=== PATIENT | female | born 1995 | race Caucasian/White ===

== ENCOUNTER → 2016-05-31 | Day surgery (SDC) | payer OTHER ==
[~2016-05-31] MED LIST: ADVIL200 MG PO; AUGMENTIN 875875 MG PO; CIPROFLOXACIN500 M2 PO; DILAUDID2 M1 PO; FERROUS SULFAT325 M1 PO; FIORICET 50-301 EACH PO; IBUPROFEN800 M1 PO; MEDROXYPROG150 MG/ML IM; OXYCODONE-ACET1 EAC1 PO; PERCOCET 325 MG1 TA2 PO; PERCOCET 325 MG1 TA3 PO; PERCOCET 5-3251 EACH PO; ZOFRAN ODT4 M1 SL; ZOFRAN4 M1 SL
--- NOTE | 2016-05-31 15:35 | Operative Report ---
Operative/Inv Procedure Report Surgery Date: 05/31/16 Name of Procedure: left renal ESWL/fluoroscopy Pre-Operative Diagnosis: left renal stone Post-Operative Diagnosis: same Estimated Blood Loss: none Surgeon/Occupational Therapy Assistant: COURTNEY WILLSON MD Anesthesia: moderate sedation Complications: none Operative/Procedure Note Note: The patient was taken to the operating room and placed on the ESWL table in supine position. With the patient awake and participating, timeout was performed to confirm correct identity, procedure, laterality, anesthesia, and other pertinent dionte-operative information. After adequate anesthesia, the patient was positioned so that the patient's left flank was positioned over the table cut-out, overlying the dome of the treatment head. Once the patient was adequately sedated, fluoroscopy, as well as Renal ultrasound was used to locate the LEFT renal stone. Renal US confirmed the presence of the stone which measured it to be approximately 6mm stone. The stone was faintly visible with fluoroscopy. Renal US revealed, no hydronephrosis, and no solid tumor, and presence of the stone. The position of the stone was optimized by using fluoroscopy in AP and oblique views;placing the stone within the ESWL c-arm crosshairs. Once the stone's position was optimized, the LEFT renal E.S.W.L. was initiated at low energy level. After noting the patient's tolerance to the shockwaves, the intensitiy was ramped up to maximum level. At the end of the procedure, the left renal stone had dissintegrated. Of note, a total of 2500 shockwaves were delivered to the stone. The patient tolerated the ESWL procedures well, was awakened, then taken to recovery in satisfactory condition via stretcher. The patient was dischared home with pain medications, diet orders, and intructions to catch fragments by straining the urine. The patient to to have follow-up renal ultrasound and KUB in 1 to 2 weeks, prior to follow-up visit in my office. He will then proceed with metabolic stone work-up. Discharge Disposition: Same Day Admissions CC: COURTNEY WILLSON MD
== END ==
LOC: STS 04:09
DX: N20.0 Calculus of kidney (principal)
CPT/HCPCS: 81025; J2250

== ENCOUNTER 2016-07-02 16:26 | Emergency (ER) | payer OTHER ==
[~2016-07-02] VITALS: Ht 165.1 cm; Wt 61.2 kg
[~2016-07-02 16:26] MED LIST changes: -CIPROFLOXACIN500 M2 PO; -DILAUDID2 M1 PO; -FIORICET 50-301 EACH PO; -OXYCODONE-ACET1 EAC1 PO
--- NOTE | 2016-07-02 16:45 | ED AMS/SEIZURE/WEAK/DIZZY ---
History of Present Illness General Chief Complaint: Dizziness Stated Complaint: DIZZINESS Source: patient Exam Limitations: no limitations Vital Signs & Intake/Output Vital Signs & Intake/Output Vital Signs Date Time Temp Pulse Resp B/P Pulse O2 O2 Flow FiO2 Ox Delivery Rate 07/02 1738 97.6 88 18 120/77 99 Room Air 07/02 1716 99 Room Air 07/02 1627 97.6 80 18 131/87 97 Room Air Allergies Coded Allergies: NO KNOWN ALLERGIES (07/02/16) Reconcile Medications Butalb/Acetaminophen/Caffeine (Fioricet 50-300-40 MG Capsule) 50 MG-300 MG-40 MG CAPSULE 1 TAB PO TID PRN HEADACHE Triage Note: 21 YO FEMALE TO TRIAGE. STATES SHE HAD A SUDDEN ONSET OF DIZZINESS AND BP WAS 83/56. PT BP NOW 111/69. PT C/O HEADACHE/NAUSEA AT THIS TIME. PT CURRENTLY HAS MENSES. Triage Nurses Notes Reviewed? yes Onset: Gradual Duration: minute(s): (20) Timing: no prior history Injury Environment: work Severity: moderate Severity Numbers: 7 Modifying Factors: Worsens With: other (standing). : No Patient currently breastfeeds: No HPI: Patient is a 21-year-old female with history of kidney stones presenting to the emergency department with chief complaint of lightheadedness, dizziness and episode of hypotension And while she was at work today. She reports that she felt lightheaded so she decided to take her blood pressure. The first pressure was normal and then she became more lightheaded and decided do a repeat blood pressure which was 80/50. She then contacted her boss who told her to sign in for evaluation. Denies any actual syncope. She reports that she had just eaten lunch. Denies any vomiting but reports nausea. Symptoms are worse with positional changes. Denies any double vision. She does report intermittent blurred vision with the initial episode. No recent upper respiratory symptoms or colds. Denies fevers or chills. No neck pain or back pain. She does report frontal headache throbbing in nature. Denies taking anything prior to arrival help with symptoms. Symptoms currently moderate. (RICKY MCDERMOTT,ERIN) Past History Travel History Traveled to [place] past 21 day No Medical History Any Pertinent Medical History? see below for history Neurological: NONE EENT: NONE Cardiovascular: NONE Respiratory: NONE Gastrointestinal: NONE Hepatic: cholelithiasis Renal: nephrolithiasis, KIDNEY STENTS Musculoskeletal: NONE Psychiatric: NONE Endocrine: NONE History of MRSA: No History of VRE: No History of CDIFF: No Surgical History Surgical History: cholecystectomy, , KIDNEY STENTS Psychosocial History Who do you live with Family Services at Home None What is your primary language Yi Tobacco Use: Current Daily Use Daily Tobacco Use Amount/Type: => 5 Cigarettes daily Family History Hx Contributory? No (ERIN CUENCA) Review of Systems Review of Systems Constitutional: Reports: malaise. Comments Review of systems: See HPI, All other systems negative. Constitutional, no chills fever or weight loss HEENT: No visual changes no sore throat no congestion Cardiovascular: No chest pain ,palpitation , orthopnea or ankle swelling Skin, no jaundice no rashes Respiratory: No dyspnea cough sputum or hemoptysis GI: no vomiting : No dysuria No hematuria Muscle skeletal: no back pain, no neck pain, Neurologic: No numbness no confusion Psych: No stress anxiety or depression,. Heme/endocrine: No bruising no bleeding no polyuria or polydipsia Immunology: No splenectomy or history of AIDS (ERIN CUENCA) Physical Exam Physical Exam General Appearance: well developed/nourished, no apparent distress, alert, awake , comfortable Comments: Well-developed well-nourished person in no acute distress HEENT: Normal EENT exam, extraocular motion intact, no nystagmus. Pupils equally round and reactive to light and accommodation. Nose is atraumatic. External auditory canal and Tympanic membranes clear. Pharynx normal. No swelling or edema. Funduscopic: Somewhat limited secondary to no dilation but no acute intra-ocular process noted. No venous nicking or retinal detachment noted. Neck: Supple, no lymphadenopathy, normal range of motion without pain or tenderness. No meningeal signs. Back: Nontender Cardiovascular: Regular rate and rhythms no murmurs rubs or gallops, normal JVP Respiratory: Chest nontender. No respiratory distress.breath sounds clear to auscultation bilaterally Abdomen: Soft, nontender nondistended, no appreciable organomegaly. Normal bowel sounds. No ascites Extremity: No edema, no calf tenderness to palpation, normal and equal pulses. Full range of motion of all extremity is without difficulty or pain. Muscular strength is 5 out of 5 in all extremities. Neuro: Alert oriented x3, motor sensory normal, cranial nerves II through XII grossly intact. Cerebellar testing is unremarkable. Skin: No appreciable rash on exposed skin, skin is warm and dry. Psych: Mood and affect is normal, memory and judgment is normal. Core Measures ACS in differential dx? No CVA/TIA Diagnosis: No Severe Sepsis Present: No Septic Shock Present: No (RICKY MCDERMOTT,ERIN) Progress Differential Diagnosis: VASOVAGAL EPISODE, HYPOGLYCEMIA , MIGRAINE HEADACHE, ORTHOSTATIC HYPOTENSION, VIRAL SYNDROME, INFLUENZA, DEHYDRATION, ANEMIA Plan of Care: Orders Procedure Date/time Status RAPID VIRAL INFLUENZA A 07/02 1717 Complete Add-on Test (ER Only) 07/02 1644 Active MISTAKE 07/02 1643 Active Telemetry/Coach Driver 07/02 164 Active URINE 07/02 164 Complete URINALYSIS 07/02 164 Complete TSH REFLEX 07/02 164 Complete TROPONIN LEVEL 07/02 164 Complete COMPREHENSIVE METABOLIC PANEL 07/02 164 Complete CBC WITHOUT DIFFERENTIAL 07/02 1643 Complete EKG 07/02 164 Active Laboratory Tests 07/02/16 171: Urinalysis MANY H, Urine Color YEL, Urine Clarity CLDY H, Urine pH 8.0, Ur Specific [place] 1.015, Urine Protein TRACE H, Urine Ketones NEG, Urine Nitrite NEG, Urine Bilirubin NEG, Urine Urobilinogen 0.2, Ur Leukocyte Esterase NEG, Ur Microscopic SEDIMENT EXAMINED, Urine RBC 1-3, Urine WBC 1-3 H, Ur Epithelial Cells MANY H, Urine Hemoglobin LARGE H, Urine Glucose NEG, Urine Test NEGATIVE 07/02/161709: Anion Gap 11, Estimated GFR > 60, BUN/Creatinine Ratio 22.9, Glucose 87, Calcium 9.5, Total Bilirubin 0.5, AST 28, ALT 31, Alkaline Phosphatase 52, Troponin I < 0.01, Total Protein 7.5, Albumin 4.7, Globulin 2.8, Albumin/Globulin Ratio 1.7, TSH &T3 &Free T4 Intrp 1.150, CBC w Diff NO MAN DIFF REQ, RBC 4.00 L, MCV 90.3, MCH 30.2, RDW 12.6, MPV 8.3, Gran % 66.6, Lymphocytes % 26.8, Monocytes % 5.2, Eosinophils % 1.1, Basophils % 0.3, Absolute Granulocytes 4.6, Absolute Lymphocytes 1.8, Absolute Monocytes 0.4, Absolute Eosinophils 0.1, Absolute Basophils 0, PUBS MCHC 33.5 Initial ED EKG: NSR (78 BPM) Comments: On arrival patient medicated with IV fluids 1 L normal saline, IV Toradol for headache. Blood pressure stable at this time. We will assess CBC is patient reports recent history of menstrual period with heavier bleeding than normal. Patient informed of all lab work results. While still stable. Patient's overreporting frontal headache. Patient will receive Fioricet. Patient feeling much improved of her Fioricet. She'll be discharged home. Educated on increasing fluids. Patient nontoxic and compliant. (ERIN CUENCA) Departure Departure Time of Disposition: 1841 Disposition: HOME OR SELF CARE Condition: Stable Clinical Impression Primary Impression: Dizziness Secondary Impressions: Headache Qualifiers: Headache type: unspecified Headache chronicity pattern: unspecified pattern Intractability: not intractable Qualified Code: R51 - Headache Referrals: PATIENT HAS NO PRIMARY CARE DR (PCP/Family) Departure Forms: Customer Survey General Discharge Information Prescriptions: Current Visit Scripts Butalb/Acetaminophen/Caffeine (Fioricet 50-300-40 MG Capsule) 1 TAB PO TID PRN HEADACHE #10 TAB (ERIN CUENCA) PA/COST ESTIMATOR Co-Sign Statement Statement: ED Attending supervision documentation- [] I saw and evaluated the patient. I have also reviewed all the pertinent lab results and diagnostic results. I agree with the findings and the plan of care as documented in the PA's/COST ESTIMATOR's documentation. X I have reviewed the ED Record and agree with the PA's/COST ESTIMATOR's documentation. [] Additions or exceptions (if any) to the PAs/COST ESTIMATOR's note and plan are summarized below: [] (BRITANY MORALES,GOLD)
[2016-07-02 17:21] LABS: ABSOLUTE BASOPHIL COUNT 0 /CUMM (0.0-0.2); ABSOLUTE EOSINOPHIL COUNT 0.1 /CUMM (0.0-0.7); ABSOLUTE GRANULOCYTE CT 4.6 /CUMM (1.4-6.5); ABSOLUTE LYMPH COUNT 1.8 /CUMM (1.2-3.4); ABSOLUTE MONOCYTE COUNT 0.4 /CUMM (0.10-0.60); BASOPHIL % 0.3 % (0.0-2.0); EOSINOPHIL % 1.1 % (0-5); GRANULOCYTE % 66.6 % (42.2-75.2); HEMATOCRIT 36.1 % (37-47); MEAN CORPUSCULAR HGB 30.2 PG (27.0-31.0); MEAN CORPUSCULAR HGB CONC 33.5 G/DL (33.0-37.0); MEAN CORPUSCULAR VOLUME 90.3 FL (81.0-99.0); MEAN PLATELET VOLUME 8.3 FL (7.4-10.4); PLATELET COUNT 224 /CUMM (130-400); RBC DISTRIBUTION WIDTH 12.6 % (11.5-14.5); WHITE BLOOD CELL COUNT 6.9 /CUMM (4.8-10.8)
[2016-07-02] MEDS ORDERED: FIORICET 50-301 EACH PO (19:06)
[2016-07-02 19:41] VITALS: BP 115/74
== END 2016-07-02 19:42 ==
LOC: ERH 16:26
PROVIDERS: Physician Assistant
DX: R42 Dizziness and giddiness (principal); R51 Headache
CPT/HCPCS: 81001; 81025; 87804; 87804-59; 93005; 93010; 96374; J1885

== ENCOUNTER → 2016-08-04 | Day surgery (SDC) | payer OTHER ==
[~2016-08-04] VITALS: Ht 165.1 cm; Wt 59.0 kg
[~2016-08-04] MED LIST changes: +CIPROFLOXACIN500 M2 PO; +DILAUDID2 M1 PO; +FIORICET 50-301 EACH PO; +OXYCODONE-ACET1 EAC1 PO
--- NOTE | 2016-08-04 11:23 | RADIOLOGY REPORT ---
EXAMINATION: Intraoperative fluoroscopy CLINICAL INFORMATION: Right-sided ureteroscopy. Bilateral retrograde ureterograms. COMPARISON: KUB 07/26/2016, renal ultrasound 07/26/[address] abdomen pelvis 04/30/2016 TECHNIQUE: Intraoperative fluoroscopy was provided for use by Dr. Wiley. A total of 13 images were saved to PACS. TOTAL FLUOROSCOPIC TIME: 1 minute and 16 seconds FINDINGS\E\IMPRESSION: Intraoperative fluoroscopy provided for use by Dr. Wiley. Saved images demonstrate opacification of the bilateral ureters and renal pelvises. Instrumentation is appreciated within the right ureter and right renal pelvis. Please see operative note for detailed findings.
--- NOTE | 2016-08-04 14:46 | Operative Report ---
Operative/Inv Procedure Report Surgery Date: 08/04/16 Name of Procedure: cystoscopy: bilateral retrograde pyelogram, right flexible ureteroscopy with laser lithotrypsy of renal stone. Pre-Operative Diagnosis: R>L renal colic. with hydro. Post-Operative Diagnosis: same Estimated Blood Loss: scant Surgeon/Brake Lining Finisher: COURTNEY WILLSON MD Anesthesia: laryngeal mask airway Complications: none Operative/Procedure Note Note: Patient was taken to the operating room placed on the OR table in supine position. Timeout was performed, with the patient awake, in order to confirm the patient's identity, procedure, bilaterality, antibiotics, anesthesia, and other pertinent dionte-operative information. After adequate anesthesia and antibiotics, the patient was then placed in lithotomy stirrups, draped and prepped in the usual surgical fashion. A 22 [place] cystoscope sheath with 30 angle lens was inserted without difficulty. Upon entering the bladder, the bladder was noted to be free of tumor, and free of stone. Using a ureteral open -ended stent, starting with the left ureter, a retrograde pyelograms was perfomed, with fluoroscopy, revealing no filling defects, with quick and adequate drainage of the contrast material bilaterally, after the removal of the ureter open-ended stent. The same retrograde procedure was performed on the right side, again revealing no obvious filling deffect, and brisk efflux of contrast material. As the pt has been c/o severe right renal colic, I proceeded with flexible ureteroscopy. Holmium/YAG laser was on standby and turned on. The right orifice was intubated with a 0.035 gluide wire, and advanced to the right renal pelvis without difficulty. Using the gluide wire, and fluoroscope, the flexible uretersocope was placed over the gluide wire and advanced to the right renal pelvis with fluoroscopic guidance. Thorough calycoscopy and pyeloscopy confirms NO stone, and NO tumor in the renal calyxes, nor renal pelvis. At this point, the ureteroscope was then gently retracted from the left renal pelvis without difficulty, and no other stone, nor any tumor, was visualized along the left ureter with direct visualization. The bladder was then drained. All sponge needle and instrument count were correct at the end of the case. The patient tolerated the procedure well was then taken to the recovery room in satisfactory condition. She is discharged home with antibiotics and pain meds. Findings: 5mm LP stone pulverized with 200mcm fiber. Discharge Disposition: PACU CC: COURTNEY WILLSON MD
== END ==
LOC: STS 08-02 07:00
DX: N23 Unspecified renal colic (principal); N13.39 Other hydronephrosis; Z87.442 Personal history of urinary calculi
CPT/HCPCS: 74020; 81025; J2250

== ENCOUNTER 2016-08-26 00:12 | Emergency (ER) | payer OTHER ==
[~2016-08-26 00:12] MED LIST changes: -CIPROFLOXACIN500 M2 PO; -DILAUDID2 M1 PO; -OXYCODONE-ACET1 EAC1 PO
[2016-08-26 00:24] VITALS: BP 125/87
[2016-08-26 01:31] LABS: ABSOLUTE BASOPHIL COUNT 0 /CUMM (0.0-0.2); ABSOLUTE EOSINOPHIL COUNT 0 /CUMM (0.0-0.7); ABSOLUTE GRANULOCYTE CT 5.8 /CUMM (1.4-6.5); ABSOLUTE LYMPH COUNT 1.5 /CUMM (1.2-3.4); ABSOLUTE MONOCYTE COUNT 0.4 /CUMM (0.10-0.60); BASOPHIL % 0.1 % (0.0-2.0); EOSINOPHIL % 0.4 % (0-5); GRANULOCYTE % 74.8 % (42.2-75.2); MEAN CORPUSCULAR HGB 30.2 PG (27.0-31.0); MEAN CORPUSCULAR HGB CONC 33.8 G/DL (33.0-37.0); MEAN CORPUSCULAR VOLUME 89.3 FL (81.0-99.0); MEAN PLATELET VOLUME 8.9 FL (7.4-10.4); PLATELET COUNT 219 /CUMM (130-400); RBC DISTRIBUTION WIDTH 12.5 % (11.5-14.5); RED BLOOD CELL CT 4.25 /CUMM (4.20-5.40); WHITE BLOOD CELL COUNT 7.8 /CUMM (4.8-10.8)
--- NOTE | 2016-08-26 01:42 | ED GI/GU/ABDOMINAL COMPLAINT ---
History of Present Illness General Chief Complaint: Female Urogenital Problems Stated Complaint: PT C/O R SIDED FLANK PAIN S/P PROCEDURE IN JULY Source: patient, old records Exam Limitations: no limitations Vital Signs & Intake/Output Vital Signs & Intake/Output Vital Signs Date Time Temp Pulse Resp B/P Pulse O2 O2 Flow FiO2 Ox Delivery Rate 08/26 0035 Room Air 08/26 0024 97.0 100 18 125/87 99 Room Air Allergies Coded Allergies: No Known Allergies (08/26/16) Reconcile Medications Butalb/Acetaminophen/Caffeine (Fioricet 50-300-40 MG Capsule) 50 MG-300 MG-40 MG CAPSULE 1 TAB PO TID PRN HEADACHE Hydromorphone HCl (Dilaudid) 2 MG TABLET 1 TAB PO Q6P PRN severe pain Triage Note: PT TO ED FOR COMPLAINTS OF WORSENING R SIDED FLANK PAIN. HX OF KIDNEY STONES AND HYDRONEPHROSIS. PT HAD URETEROSCOPY ON 07/31/16 AND PAIN HAS BEEN SLOWLY INCREASING SINCE PROCEDURE. PT DENIES URINARY SYMPTOMS. PAIN IS 6/10 AT THIS TIME. DENIES CHANCE OF . STATES "I CAN FEEL THE KIDNEY IS SWOLLEN" Triage Nurses Notes Reviewed? yes LMP (ages 10-50): unknown ? n Is pt currently ? No Onset: several weeks Duration: week(s):, constant, continues in ED, getting worse Timing: recent history Quality/Severity: aching, sharpness, severe Location: right flank Radiation: no radiation Activities at Onset: none Prior Abdominal Problems: similar symptoms Past Sexual History: Unobtainable at this time No Modifying Factors: none Associated Symptoms: abdominal pain, nausea/vomiting HPI: 1 week prior to admission patient complains of recurrent right flank pain described as waxing and waning nonradiating associated with nausea. She has follow-up ultrasound x-rays in 3 days for hydronephrosis. She denies fever chills vomiting diarrhea chest pain cough shortness of breath headache dysuria rash bleeding. Past History Travel History Traveled to [place] past 21 day No Medical History Any Pertinent Medical History? see below for history Neurological: NONE EENT: NONE Cardiovascular: NONE Respiratory: NONE Gastrointestinal: NONE Hepatic: cholelithiasis Renal: nephrolithiasis, HYDRONEPHROSIS Musculoskeletal: NONE Psychiatric: NONE Endocrine: NONE History of MRSA: No History of VRE: No History of CDIFF: No Surgical History Surgical History: cholecystectomy, , KIDNEY STENTS Psychosocial History Who do you live with Family Services at Home None What is your primary language Bhutanese Tobacco Use: Current Daily Use Daily Tobacco Use Amount/Type: =< 4 Cigarettes daily ETOH Use: occasional use Family History Hx Contributory? No Review of Systems Review of Systems Constitutional: Reports: see HPI, malaise. EENTM: Reports: no symptoms. Respiratory: Reports: no symptoms. Cardiovascular: Reports: no symptoms. GI: Reports: no symptoms. Genitourinary: Reports: see HPI, pain. Musculoskeletal: Reports: no symptoms. Skin: Reports: no symptoms. Neurological/Psychological: Reports: no symptoms. Hematologic/Endocrine: Reports: no symptoms. Immunologic/Allergic: Reports: no symptoms. All Other Systems: Reviewed and Negative Physical Exam Physical Exam General Appearance: well developed/nourished, alert, awake, anxious, moderate distress, thin Head: atraumatic, normal appearance Eyes: Bilateral: normal appearance, PERRL, EOMI, normal inspection. Ears, Nose, Throat, Mouth: hearing grossly normal, moist mucous membrane Neck: normal inspection, supple, full range of motion, normal alignment Respiratory: normal breath sounds, chest non-tender, no respiratory distress, quiet respiration, lungs clear Cardiovascular: regular rate/rhythm, normal peripheral pulses, norml femoral pulses equa Peripheral Pulses: 4+ carotid (R), 4+ carotid (L) Gastrointestinal: normal bowel sounds, soft, non-tender, no organomegaly Back: normal inspection, normal range of motion Extremities: normal range of motion, no ligament instability Neurologic/Psych: no motor/sensory deficits, awake, alert, oriented x 3, normal gait, normal mood/affect Skin: intact, normal color, warm/dry Core Measures ACS in differential dx? No Severe Sepsis Present: No Septic Shock Present: No Progress Differential Diagnosis: kidney stone, UTI/pyelo Plan of Care: Orders Procedure Date/time Status URINALYSIS 08/26 99 Complete HUMAN BETA HCG SCREEN 08/26 99 Complete COMPREHENSIVE METABOLIC PANEL 08/26 99 Complete CBC WITHOUT DIFFERENTIAL 08/26 99 Complete Laboratory Tests 08/26/16 0123: Anion Gap 10, Estimated GFR > 60, BUN/Creatinine Ratio 18.6, Glucose 98, Calcium 9.6, Total Bilirubin 0.5, AST 27, ALT 24, Alkaline Phosphatase 35, Total Protein 7.4, Albumin 4.5, Globulin 2.9, Albumin/Globulin Ratio 1.6, Total Beta HCG NEGATIVE, CBC w Diff NO MAN DIFF REQ, RBC 4.25, MCV 89.3, MCH 30.2, RDW 12.5, MPV 8.9, Gran % 74.8, Lymphocytes % 19.3 L, Monocytes % 5.4, Eosinophils % 0.4, Basophils % 0.1, Absolute Granulocytes 5.8, Absolute Lymphocytes 1.5, Absolute Monocytes 0.4, Absolute Eosinophils 0, Absolute Basophils 0, PUBS MCHC 33.8, Urine Color STRAW, Urine Clarity HAZY H, Urine pH 6.5, Ur Specific [place] <= 1.005, Urine Protein NEG, Urine Ketones NEG, Urine Nitrite NEG, Urine Bilirubin NEG, Urine Urobilinogen 0.2, Ur Leukocyte Esterase TRACE H, Ur Microscopic SEDIMENT EXAMINED, Urine RBC RARE, Urine WBC 1-3 H, Ur Epithelial Cells MANY H , Urine Bacteria MOD H, Urine Hemoglobin NEG, Urine Glucose NEG Diagnostic Imaging: Viewed by Me: CT Scan. Discussed w/RAD: CT Scan. Radiology Impression: Hydronephrosis of the right kidney but no renal or ureteral calculus. Initial ED EKG: none Departure Departure Time of Disposition: 316 Disposition: HOME OR SELF CARE Condition: Stable Clinical Impression Primary Impression: Hydronephrosis Qualifiers: Hydronephrosis type: unspecified Qualified Code: N13.30 - Unspecified hydronephrosis Referrals: KRYS MORALES,REG THOMAS MD,JESSIE Bonilla Departure Forms: Customer Survey General Discharge Information RELEASE- WORK Prescriptions: Current Visit Scripts Hydromorphone HCl (Dilaudid) 1 TAB PO Q6P PRN severe pain #20 TAB
--- NOTE | 2016-08-26 02:33 | CT SCAN REPORT ---
EXAMINATION: CT ABDOMEN AND PELVIS WITHOUT CONTRAST CLINICAL INFORMATION: History of stones. Right flank pain. COMPARISON: CT scan abdomen pelvis 04/30/2016 TECHNIQUE: Multidetector volumetric imaging was performed from the superior aspect of the liver through the pubic symphysis. Sagittal and coronal reformatted images were obtained on the technologist's workstation. DLP: 267.7 mGy-cm FINDINGS: LUNG BASES: The visualized lung bases are unremarkable. LIVER, GALLBLADDER, AND BILIARY TREE: The liver is normal in size, shape, and attenuation. No focal hepatic lesion or biliary ductal dilatation is present. Status post cholecystectomy. PANCREAS: Unremarkable. SPLEEN: Unremarkable. ADRENAL GLANDS: Unremarkable. KIDNEYS AND URETERS: There is moderate hydronephrosis of the right kidney with dilatation of renal pelvis and calyces in the right ureter to the ureterovesical junction. No renal or ureteral calculus. BLADDER: Unremarkable. GASTROINTESTINAL TRACT: The small and large bowel are unremarkable. The appendix is unremarkable. ABDOMINAL WALL: No significant hernia is appreciated. LYMPH NODES: Normal. VASCULAR: Unremarkable. PELVIC VISCERA: Uterus is anteverted. No adnexal abnormality. Radiolucent ring within the vaginal vault. OSSEOUS STRUCTURES: Unremarkable. IMPRESSION: Hydronephrosis of the right kidney but no renal or ureteral calculus.
[2016-08-26] MEDS ORDERED: DILAUDID2 M1 PO (03:19)
== END 2016-08-26 03:33 ==
LOC: ERH 00:12
PROVIDERS: Emergency Medicine
DX: N13.30 Unspecified hydronephrosis (principal); R11.0 Nausea
CPT/HCPCS: 74176; 81001; 96374; 96375; J1200; J1885; J2405

== ENCOUNTER 2016-09-09 16:33 | Emergency (ER) | payer OTHER ==
[~2016-09-09] VITALS: Ht 165.1 cm; Wt 61.2 kg
[~2016-09-09 16:33] MED LIST changes: -CIPROFLOXACIN500 M2 PO; -OXYCODONE-ACET1 EAC1 PO
--- NOTE | 2016-09-09 16:47 | ED GI/GU/ABDOMINAL COMPLAINT ---
History of Present Illness General Chief Complaint: Abdominal Pain/Flank Pain Stated Complaint: SEVERE RT FLANK PAIN POST STENT PLACEMENT Source: patient Exam Limitations: no limitations Allergies Coded Allergies: No Known Allergies (08/26/16) Reconcile Medications Ciprofloxacin HCl 500 MG TABLET 1 TAB PO BID ANTIBIOTIC (Reported) Hydromorphone HCl (Dilaudid) 2 MG TABLET 1 TAB PO BIDP PRN PAIN Oxycodone HCl/Acetaminophen (Oxycodone-Acetaminophen 10-325) 10 MG-325 MG TABLET 1 TAB PO AD PRN PAIN (Reported) Triage Note: PT TO ED WITH RIGHT ABD AND BACK PAIN, PT HAS STENT PLACED THIS MORNING BY DR WILLSON. Triage Nurses Notes Reviewed? yes ? N Is pt currently ? No Onset: Abrupt Duration: hour(s): (1) Timing: recent history Quality/Severity: sharpness Severity Numbers: 10 Location: right flank Radiation: no radiation Activities at Onset: none Prior Abdominal Problems: similar symptoms Sexually Active: Yes Last Time You Were Sexual: less than 2 months ago Sexual Orientation: Heterosexual No Modifying Factors: none HPI: Patient is a 21-year-old female with extensive history of kidney stones presenting to the emergency department chief complaint of sudden onset of right flank pain and right mid back pain that started about one hour prior to arrival. Patient reports that she had a ureteral stent placed this morning by her urologist and was doing fine. The procedure was done at 9:30 AM. Pain started about 1 hour prior to arrival. Movement seems to make the pain worse nothing seems to make the pain better. Denies any vomiting but does report nausea. No fevers or chills. Denies any change in urinary habits. No sick contacts or recent travel. (RICKY MCDERMOTT,ERIN) Vital Signs & Intake/Output Vital Signs & Intake/Output Vital Signs Date Time Temp Pulse Resp B/P B/P Pulse O2 O2 Flow FiO2 Mean Ox Delivery Rate 09/09 1925 97.0 76 18 80/40 96 Room Air 09/09 1638 97.0 98 20 127/88 99 Room Air Room Air Past History Travel History Traveled to [place] past 21 day No Medical History Any Pertinent Medical History? see below for history Neurological: NONE EENT: NONE Cardiovascular: NONE Respiratory: NONE Gastrointestinal: NONE Hepatic: cholelithiasis Renal: nephrolithiasis, HYDRONEPHROSIS Musculoskeletal: NONE Psychiatric: NONE Endocrine: NONE Blood Disorders: NONE Cancer(s): NONE FNP/Reproductive: NONE History of MRSA: No History of VRE: No History of CDIFF: No Surgical History Surgical History: cholecystectomy, , KIDNEY STENTS Psychosocial History Who do you live with Family Services at Home None What is your primary language Greek Tobacco Use: Current Daily Use Daily Tobacco Use Amount/Type: => 5 Cigarettes daily ETOH Use: occasional use Illicit Drug Use: denies illicit drug use Family History Hx Contributory? No (ERIN CUENCA) Review of Systems Review of Systems Constitutional: Reports: no symptoms. Comments Review of systems: See HPI, All other systems negative. Constitutional, no chills fever or weight loss HEENT: No visual changes no sore throat no congestion Cardiovascular: No chest pain ,palpitation Skin, no jaundice no rashes Respiratory: No dyspnea cough sputum or hemoptysis GI: no vomiting : No dysuria No hematuria Muscle skeletal: no neck pain, Neurologic: No numbness no confusion, no headache Psych: Tearful Heme/endocrine: No bruising no bleeding no polyuria or polydipsia Immunology: No splenectomy or history of AIDS (ERIN CUENCA) Physical Exam Physical Exam General Appearance: well developed/nourished, alert, awake, anxious, moderate distress Gastrointestinal: normal bowel sounds, soft, tenderness Comments: Well-developed well-nourished person in moderate distress HEENT: Pupils equally round and reactive to light and accommodation. Nose is atraumatic. Neck: Normal inspection Back: Right CVA tenderness. Cardiovascular: Regular rate and rhythms no murmurs rubs or gallops, normal JVP Respiratory:No respiratory distress.breath sounds clear to auscultation bilaterally Abdomen: Soft, severe tender to palpation over the right flank, moderate guarding, nondistended, no appreciable organomegaly. Normal bowel sounds. No ascites Extremity: No edema Neuro: Alert oriented x3 Skin: No appreciable rash on exposed skin, skin is warm and dry. Psych: Mood and affect is normal, memory and judgment is normal. Core Measures ACS in differential dx? No Severe Sepsis Present: No Septic Shock Present: No (ERIN CUENCA) Progress Differential Diagnosis: uti, URETEROLITHIASIS,MOVEMENT OF URETERAL STENT, PYELONEPHRITIS, HYDRONEPHROSIS Diagnostic Imaging: Viewed by Me: CT Scan. Discussed w/RAD: CT Scan. Radiology Impression: PATIENT: LANCE HERNANDES PRESENT AGE: 21 PATIENT ACCOUNT NO: [id number] : 93 LOCATION: [facility] ORDERING PHYSICIAN: ERIN MCDERMOTT SERVICE DATE: 09/09/16 EXAM TYPE: CAT - CT ABD & PELVIS W/O IV CONTRAS EXAMINATION: CT ABDOMEN AND PELVIS WITHOUT CONTRAST CLINICAL INFORMATION: Ureteral injury, stent placement COMPARISON: 11/2016 TECHNIQUE: Multidetector volumetric imaging was performed from the superior aspect of the liver through the pubic symphysis. Sagittal and coronal reformatted images were obtained on the technologist's workstation. This is a noncontrast study. Lung bases are grossly clear. Upper abdomen Surgical clips status post cholecystectomy. Liver and spleen are grossly normal in morphology. Region the pancreas is unremarkable.. The adrenal glands is unremarkable. On the right there is a stent which appears to be associated with a dilated pelvis of the right kidney. There is hydronephrosis. Stent appears to extend down inside a dilated ureter which terminates short of the bladder. The left kidney is nonhydronephrotic. The bowel pattern is nonobstructing. No bulky adenopathy. No free fluid in the upper abdomen. In the pelvis believe the stent is not in the bladder but may well be in the very distal ureter. The ureter is poorly seen in the region of the pelvis as was the case on previous exam and cannot be adequately visualized. Uterus lies to the left of midline. There is a serpiginous route immediately after the pelvic system however I do feel that the catheter is lying within the ureter. There is some periureteral soft tissue stranding seen. There is a small amount of free fluid in the deep pelvis. IMPRESSION: Ureteral stent on the right proximally is felt to be in the pelvis of the dilated collecting system but distally it is not felt into the bladder and may be lying within the distal right ureter. Difficult to determine the exact position here distally as the ureter is not adequately defined in the deep pelvis. Correlation needs to be made clinically. There is a small amount of free fluid in the deep pelvis. More proximally the ureter within the dilated right renal collecting system does take a serpiginous lateral coarse which is different than the ureteral appearance on 08/26/2016 however field with is still likely within the ureter here. DICTATED BY: SENDY WOLFE MD DATE/TIME DICTATED:09/09/161850 [employer]:AL DATE/TIME TRANSCRIBED:1850 CONFIDENTIAL, DO NOT COPY WITHOUT APPROPRIATE AUTHORIZATION. < Electronically signed in Other Vendor System> SIGNED BY: SENDY WOLFE MD 09/09/161916 Initial ED EKG: none Comments: 09/09/2016 5:19:52 PM arrival patient medicated with IV morphine, fluids and Zofran. Patient had little relief since she was then more medicated with 1 mg IV Dilaudid. Patient will be medicated with IV Toradol. 09/09/2016 6:17:25 PM patient still having significant pain. Given another 1 mg of Dilaudid. IV Tylenol ordered. 09/09/2016 7:36:03 PM pain is currently 4 out of 10 at this time. Pending call back from urology. CT cannot identify the distal ureter. 09/09/2016 8:03:[address] toribio, recommending patient be nothing by mouth, holdover till tomorrow and do a cystogram to rule out perforation of the ureter. Patient apprehensive about staying over for admission. (RICKY MCDERMOTT,ERIN) Plan of Care: Orders Procedure Date/time Status Add-on Test (ER Only) 09/10 1927 Active CULTURE,URINE 09/09 1905 Active URINE 09/09 164 Complete URINALYSIS 09/09 164 Complete LACTIC ACID 09/09 164 Complete COMPREHENSIVE METABOLIC PANEL 09/09 164 Complete CBC WITHOUT DIFFERENTIAL 09/09 164 Complete Current Medications Sig/Abdi Start time Last Medication Dose Stop Time Status Admin Sodium Chloride 1,000 ML BOLUS ONE 09/09 1944 AC 09/09 (Normal Saline 0.9%) 09/10 2043 193 Laboratory Tests 09/09/161943: Lactic Acid Cancelled 09/09/161905: Urinalysis LIGHT H, Urine Color YEL, Urine Clarity HAZY H, Urine pH 7.5, Ur Specific [place] 1.025, Urine Protein >=300 H, Urine Ketones 15 H, Urine Nitrite POS H, Urine Bilirubin NEG, Urine Urobilinogen 1.0, Ur Leukocyte Esterase NEG, Ur Microscopic SEDIMENT EXAMINED, Urine RBC 25-50 H, Urine WBC 3- 5 H, Ur Epithelial Cells FEW, Urine Bacteria FEW H, Urine Mucus FEW, Urine Hemoglobin LARGE H, Urine Glucose NEG, Urine Test NEGATIVE 09/09/16 1659: Anion Gap 13, Estimated GFR > 60, BUN/Creatinine Ratio 12.9, Glucose 118 H, Lactic Acid 1.1, Calcium 9.4, Total Bilirubin 0.5, AST 31, ALT 40, Alkaline Phosphatase 47, Total Protein 7.6, Albumin 4.6, Globulin 3.0, Albumin/Globulin Ratio 1.5, CBC w Diff MAN DIFF ORDERED, RBC 4.30, MCV 89.2, MCH 29.6, RDW 12.2, MPV 8.9, Gran % 87.8 H, Lymphocytes % 10.9 L, Monocytes % 1.0 L, Eosinophils % 0.1, Basophils % 0.2, Absolute Granulocytes 5.3, Segmented Neutrophils 84 H, Band Neutrophils 4, Absolute Lymphocytes 0.7 L, Lymphocytes 11 L, Monocytes 1 L, Absolute Monocytes 0.1 L, Absolute Eosinophils 0, Absolute Basophils 0, Platelet Estimate ADEQUATE, Normochromic RBCs VERIFIED, Anisocytosis 1+, PUBS MCHC 33.1 Microbiology 09/09 1905 URINE ROUT: Urine Culture - RECD Departure Departure Time of Disposition: 1954 Disposition: LEFT AGAINST MEDICAL ADVICE Condition: Stable Clinical Impression Primary Impression: Renal colic Referrals: PATIENT HAS NO PRIMARY CARE DR (PCP/Family) Additional Instructions: Return for worsening symptoms or concerns. Take Dilaudid as prescribed for pain. Leaving AGAINST MEDICAL ADVICE, it was explained to her that there is a potential risk of a ruptured ureter. Return for worsening symptoms or concerns. Departure Forms: Customer Survey General Discharge Information Prescriptions: Current Visit Scripts Hydromorphone HCl (Dilaudid) 1 TAB PO BIDP PRN PAIN #10 TAB (ERIN CUENCA) PA/TRAFFIC RATE COMPUTER Co-Sign Statement Statement: ED Attending supervision documentation- [X] I saw and evaluated the patient. I have also reviewed all the pertinent lab results and diagnostic results. I agree with the findings and the plan of care as documented in the PA's/TRAFFIC RATE COMPUTER's documentation. [X] I have reviewed the ED Record and agree with the PA's/TRAFFIC RATE COMPUTER's documentation. [] Additions or exceptions (if any) to the PAs/TRAFFIC RATE COMPUTER's note and plan are summarized below: [] (YESSI MORALES,LILLIAN) PA/TRAFFIC RATE COMPUTER Co-Sign Statement Statement: ED Attending supervision documentation- [] I saw and evaluated the patient. I have also reviewed all the pertinent lab results and diagnostic results. I agree with the findings and the plan of care as documented in the PA's/TRAFFIC RATE COMPUTER's documentation. [] I have reviewed the ED Record and agree with the PA's/TRAFFIC RATE COMPUTER's documentation. [] Additions or exceptions (if any) to the PAs/TRAFFIC RATE COMPUTER's note and plan are summarized below: [] (SENDY SAPP DO
[2016-09-09 17:42] LABS: ABSOLUTE BASOPHIL COUNT 0 /CUMM (0.0-0.2); ABSOLUTE EOSINOPHIL COUNT 0 /CUMM (0.0-0.7); ABSOLUTE GRANULOCYTE CT 5.3 /CUMM (1.4-6.5); ABSOLUTE LYMPH COUNT 0.7 /CUMM (1.2-3.4); ABSOLUTE MONOCYTE COUNT 0.1 /CUMM (0.10-0.60); BASOPHIL % 0.2 % (0.0-2.0); EOSINOPHIL % 0.1 % (0-5); GRANULOCYTE % 87.8 % (42.2-75.2); HEMATOCRIT 38.4 % (37-47); MEAN CORPUSCULAR HGB 29.6 PG (27.0-31.0); MEAN CORPUSCULAR HGB CONC 33.1 G/DL (33.0-37.0); MEAN CORPUSCULAR VOLUME 89.2 FL (81.0-99.0); MEAN PLATELET VOLUME 8.9 FL (7.4-10.4); PLATELET COUNT 207 /CUMM (130-400); RBC DISTRIBUTION WIDTH 12.2 % (11.5-14.5); WHITE BLOOD CELL COUNT 6.1 /CUMM (4.8-10.8)
[2016-09-09] MEDS ORDERED: CIPROFLOXACIN500 M2 PO (17:52)
[2016-09-09] MEDS ORDERED: OXYCODONE-ACET1 EAC1 PO (17:52)
--- NOTE | 2016-09-09 19:17 | CT SCAN REPORT ---
EXAMINATION: CT ABDOMEN AND PELVIS WITHOUT CONTRAST CLINICAL INFORMATION: Ureteral injury, stent placement COMPARISON: 08/26/2016 TECHNIQUE: Multidetector volumetric imaging was performed from the superior aspect of the liver through the pubic symphysis. Sagittal and coronal reformatted images were obtained on the technologist's workstation. This is a noncontrast study. Lung bases are grossly clear. Upper abdomen Surgical clips status post cholecystectomy. Liver and spleen are grossly normal in morphology. Region the pancreas is unremarkable.. The adrenal glands is unremarkable. On the right there is a stent which appears to be associated with a dilated pelvis of the right kidney. There is hydronephrosis. Stent appears to extend down inside a dilated ureter which terminates short of the bladder. The left kidney is nonhydronephrotic. The bowel pattern is nonobstructing. No bulky adenopathy. No free fluid in the upper abdomen. In the pelvis believe the stent is not in the bladder but may well be in the very distal ureter. The ureter is poorly seen in the region of the pelvis as was the case on previous exam and cannot be adequately visualized. Uterus lies to the left of midline. There is a serpiginous route immediately after the pelvic system however I do feel that the catheter is lying within the ureter. There is some periureteral soft tissue stranding seen. There is a small amount of free fluid in the deep pelvis. IMPRESSION: Ureteral stent on the right proximally is felt to be in the pelvis of the dilated collecting system but distally it is not felt into the bladder and may be lying within the distal right ureter. Difficult to determine the exact position here distally as the ureter is not adequately defined in the deep pelvis. Correlation needs to be made clinically. There is a small amount of free fluid in the deep pelvis. More proximally the ureter within the dilated right renal collecting system does take a serpiginous lateral coarse which is different than the ureteral appearance on 08/26/2016 however field with is still likely within the ureter here.
[2016-09-09 19:25] VITALS: BP 80/40
[2016-09-09] MEDS ORDERED: DILAUDID2 M1 PO (20:13)
== END 2016-09-09 20:24 | disposition left against medical advice (07) ==
LOC: ERH 16:33
PROVIDERS: Physician Assistant
DX: N23 Unspecified renal colic (principal); N13.30 Unspecified hydronephrosis; N13.8 Other obstructive and reflux uropathy; Z87.442 Personal history of urinary calculi
CPT/HCPCS: 74000; 74176; 81001; 81025; 87086; 96361; 96374; 96375; 96376; C2617; J0131; J0696; J1885; J2250; J2405; J2765; J3360

== ENCOUNTER → 2016-09-09 | Day surgery (SDC) | payer OTHER ==
[~2016-09-09] MED LIST changes: +CIPROFLOXACIN500 M2 PO; +DILAUDID2 M1 PO; +OXYCODONE-ACET1 EAC1 PO
--- NOTE | 2016-09-09 08:55 | Cons- Urology ---
General Information and HPI Consulting Request Date of Consult: 09/08/16 Requested By: MD DUKE MENDOSA-ANGÉLICA Reason for Consult: RIGHT HYDRO. SEVERE COLIC Source of Information: patient Exam Limitations: no limitations History of Present Illness: PT WITH HX STONES, HYDRO AND RIGHT STRICTURE: WORSENING PAIN AND CT/US CONFIRMS HYDRO. STENT TO BE PLACED. Allergies/Medications Allergies: Coded Allergies: No Known Allergies (08/26/16) Home Med List: Butalb/Acetaminophen/Caffeine (Fioricet 50-300-40 MG Capsule) 50 MG-300 MG-40 MG CAPSULE 1 TAB PO TID PRN HEADACHE Hydromorphone HCl (Dilaudid) 2 MG TABLET 1 TAB PO Q6P PRN severe pain Past History Medical History Neurological: NONE EENT: NONE Cardiovascular: NONE Respiratory: NONE Gastrointestinal: NONE Hepatic: cholelithiasis Renal: nephrolithiasis, HYDRONEPHROSIS Musculoskeletal: NONE Psychiatric: NONE Endocrine: NONE Surgical History Pertinent Surgical History: cholecystectomy, , KIDNEY STENTS Psychosocial History Services at Home: None Employment History Retired? no Review of Systems Review of Systems Constitutional: Reports: malaise. EENTM: Denies: no symptoms. Cardiovascular: Denies: no symptoms. Respiratory: Denies: no symptoms. GI: Denies: no symptoms. Genitourinary: Reports: hematuria. Musculoskeletal: Denies: no symptoms. Skin: Denies: no symptoms. All Other Systems: Reviewed and Negative Exam & Diagnostic Data Vital Signs and I&O VSS AFEBRILE. Physical Exam General Appearance: well developed/nourished, mild distress Head: atraumatic Eyes: Bilateral: normal appearance. Respiratory: normal breath sounds Cardiovascular: regular rate/rhythm Back: CVA tenderness (R) Extremities: normal inspection Skin: intact Reproductive: Normal female genitalia Last 24 Hours of Labs: Laboratory Tests 09/09 09/09 0832 0829 Urines Urine Test NEGATIVE Cancelled Imaging Results: PATIENT: LANCE HERNANDES PRESENT AGE: 21 PATIENT ACCOUNT NO: [id number] : 93 LOCATION: [facility] ORDERING PHYSICIAN: GOLD GARG MD SERVICE DATE: 08/26/16 EXAM TYPE: CAT - CT ABD & PELVIS W/O IV CONTRAS EXAMINATION: CT ABDOMEN AND PELVIS WITHOUT CONTRAST CLINICAL INFORMATION: History of stones. Right flank pain. COMPARISON: CT scan abdomen pelvis 04/30/2016 TECHNIQUE: Multidetector volumetric imaging was performed from the superior aspect of the liver through the pubic symphysis. Sagittal and coronal reformatted images were obtained on the technologist's workstation. DLP: 267.7 mGy-cm FINDINGS: LUNG BASES: The visualized lung bases are unremarkable. LIVER, GALLBLADDER, AND BILIARY TREE: The liver is normal in size, shape, and attenuation. No focal hepatic lesion or biliary ductal dilatation is present. Status post cholecystectomy. PANCREAS: Unremarkable. SPLEEN: Unremarkable. ADRENAL GLANDS: Unremarkable. KIDNEYS AND URETERS: There is moderate hydronephrosis of the right kidney with dilatation of renal pelvis and calyces in the right ureter to the ureterovesical junction. No renal or ureteral calculus. BLADDER: Unremarkable. GASTROINTESTINAL TRACT: The small and large bowel are unremarkable. The appendix is unremarkable. ABDOMINAL WALL: No significant hernia is appreciated. LYMPH NODES: Normal. VASCULAR: Unremarkable. PELVIC VISCERA: Uterus is anteverted. No adnexal abnormality. Radiolucent ring within the vaginal vault. OSSEOUS STRUCTURES: Unremarkable. IMPRESSION: Hydronephrosis of the right kidney but no renal or ureteral calculus. Assessment/Plan Assessment/Plan RIGTH HYDRDRO WITH PAIN/STENT Copies To: COURTNEY WILLSON MD Consult Acknowledgment - Thank you for your consult request. Attending Review Statement Attending Statement Attending Statement: examined this patient, discuss w/resident/PA/EAP CONSULTANT Attending Assessment/Plan: RIGHT STENT
--- NOTE | 2016-09-09 16:53 | RADIOLOGY REPORT ---
EXAMINATION: XR KIDNEYS, URETER, BLADDER CLINICAL INDICATION: History of renal calculi. COMPARISON: Abdomen CT from 08/26/2016. TECHNIQUE: C-arm fluoroscopic imaging of the abdomen was utilized by Dr. Wiley. 3 spot fluoroscopy images are saved in the electronic picture archive. Fluoroscopy time: 22 seconds. FINDINGS: Please refer to the operative report regarding indications for the examination and specific procedures performed. There was retrograde injection of contrast into the right ureter and intrarenal collecting system without evidence of hydroureteronephrosis. There appear to be two filling defects in the mid right ureter, possibly air bubbles from the injection. Correlate with the operative report. A right ureteral stent was deployed. IMPRESSION: Fluoroscopic imaging support was provided to Dr. Wiley in the operating room.
--- NOTE | 2016-09-15 14:01 | Operative Report ---
Operative/Inv Procedure Report Surgery Date: 09/09/16 Name of Procedure: cystsoccopy: right stent insertion. Pre-Operative Diagnosis: severe right colic with hydro. Post-Operative Diagnosis: same Estimated Blood Loss: scant Surgeon/[place] Opener: COURTNEY WILLSON MD Anesthesia: moderate sedation Complications: none Operative/Procedure Note Note: The patient was taken to the operating room and placed on the OR table in supine position. Timeout was performed, with the patient awake, in order to confirm identity, procedure, antibiotics, anesthesia, and other pertinent information. After adequate anesthesia and antibiotics, the patient was placed in lithotomy stirrups draped and prepped in the usual surgical fashion. A 22 [place]an cystoscope sheath with 30 angle lens was inserted into the urethra without difficulty. Upon entering the bladder, the bladder was noted to be free of tumor, free of stone, with clear reflux from the left ureteral orifice, and no efflux from the right. Under direct visualization the right ureter orifice was intubated with a 5 [place] open-ended ureter catheter. A retrograde pyelogram, with fluoroscopy was performed. The distal ureter filling defect consistent with stone was clearly visible, with proximal hydroureter, and hydronephrosis. The open-ended stent was then removed, followed by insertion of a 0.035 Glidewire into the right ureteral orifice. The Glidewire was advanced into the right renal pelvis, bypassing the stone, with good placement confirmed by fluoroscopy. Over the Glidewire, 5fr X 22 cm POLARIS stent was advanced. With the proximal coil in the right renal pelvis, and the distal strings in the bladder, the Glidewire was removed. The stent remained in proper place, both cystoscopically, and fluoroscopically. The bladder was then drained, and the cystoscope was removed. The patient tolerated procedure well and will follow-up as outpatient for further plan/procedures. Findings: tortuous right ureter with hydro. on retrograde. Discharge Disposition: PACU Additional Comments: The patient was taken to the operating room and placed on the OR table in supine position. Timeout was performed, with the patient awake, in order to confirm identity, procedure, antibiotics, anesthesia, and other pertinent information. After adequate anesthesia and antibiotics, the patient was placed in lithotomy stirrups draped and prepped in the usual surgical fashion. A 22 [place]auan cystoscope sheath with 30 angle lens was inserted into the urethra without difficulty. Upon entering the bladder, the bladder was noted to be free of tumor, free of stone, with clear reflux from the left ureteral orifice, and no efflux from the right. Under direct visualization the right ureter orifice was intubated with a 5 [place] open-ended ureter catheter. A retrograde pyelogram, with fluoroscopy was performed. The distal ureter filling defect consistent with stone was clearly visible, with proximal hydroureter, and hydronephrosis. The open-ended stent was then removed, followed by insertion of a 0.035 Glidewire into the right ureteral orifice. The Glidewire was advanced into the right renal pelvis, bypassing the stone, with good placement confirmed by fluoroscopy. Over the Glidewire, a 5fr by 22cm POLARIS stent was advanced overa the wire. With the proximal coil in the right renal pelvis, the Glidewire was removed. The stent remained in proper place, both cystoscopically, and fluoroscopically. The bladder was then drained, and the cystoscope was removed. The patient tolerated procedure well and will follow-up as outpatient for further plan/procedures.
== END ==
LOC: STS 08:08
DX: N13.30 Unspecified hydronephrosis (principal); N13.8 Other obstructive and reflux uropathy; Z87.442 Personal history of urinary calculi
CPT/HCPCS: 74000; 81025; C2617; J0696; J2250

== ENCOUNTER 2016-09-10 09:42 | Emergency (ER) | payer OTHER ==
[~2016-09-10] VITALS: Ht 165.1 cm; Wt 61.2 kg
[~2016-09-10 09:42] MED LIST changes: +CIPROFLOXACIN500 M2 PO; +OXYCODONE-ACET1 EAC1 PO
--- NOTE | 2016-09-10 09:51 | ED GI/GU/ABDOMINAL COMPLAINT ---
History of Present Illness General Chief Complaint: Abdominal Pain/Flank Pain Stated Complaint: FLANK PAIN, HX OF KIDNEY STONE Source: patient Exam Limitations: no limitations Vital Signs & Intake/Output Vital Signs & Intake/Output Vital Signs Date Time Temp Pulse Resp B/P B/P Pulse O2 O2 Flow FiO2 Mean Ox Delivery Rate 09/10 1204 97.0 78 20 93/54 98 Room Air 09/10 0943 97.5 77 20 120/80 97 Allergies Coded Allergies: No Known Allergies (08/26/16) Reconcile Medications Ciprofloxacin HCl 500 MG TABLET 1 TAB PO BID ANTIBIOTIC (Reported) Hydromorphone HCl (Dilaudid) 2 MG TABLET 1 TAB PO BIDP PRN PAIN Oxycodone HCl/Acetaminophen (Oxycodone-Acetaminophen 10-325) 10 MG-325 MG TABLET 1 TAB PO AD PRN PAIN (Reported) Triage Note: PT TO ED FOR R SIDED FLANK PAIN S/P KIDNEY STENT PLACEMENT YESTERDAY MORNING. PT REPORTS "IT'S NOT IN RIGHT" SEEN FOR SAME YESTERDAY SIGNED OUT AMA PT REPORTS SHE DID NOT WISH TO STAY OVERNIGHT "THEY WANTED ME TO HAVE A SPECIAL SCAN TODAY, IT WAS CONFIRMED THAT THE STENT WAS IN WRONG YESTERDAY WHEN I WAS HERE." PAIN 10/29. Triage Nurses Notes Reviewed? yes ? n Is pt currently ? No Onset: YESTERDAY Duration: worse persistent since (THIS MORNING) Timing: recent history Quality/Severity: sharpness, stabbing Severity Numbers: 6 Location: right flank Radiation: no radiation Activities at Onset: none Prior Abdominal Problems: similar symptoms Past Sexual History: Unobtainable at this time Modifying Factors: Improves With: rest, other (PAIN MEDS). Worsens With: movement, palpation. HPI: Patient is a 21-year-old female presenting to the emergency department with right flank pain. She was seen and evaluated here last night for the same symptoms and left AGAINST MEDICAL ADVICE because she had to go home to take care of her children. She return smarting that the pain returned. Positive nausea but no vomiting. Pain is currently 6. She had no relief with home pain medications so she decided to come in for evaluation. Denies any hematuria dysuria urgency or frequency. No chest pain palpitations or shortness of breath. No fevers or chills. Past History Travel History Traveled to [place] past 21 day No Medical History Any Pertinent Medical History? 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 No Review of Systems Review of Systems Constitutional: Reports: no symptoms. Comments Review of systems: See HPI, All other systems negative. Constitutional, no chills fever or weight loss HEENT: No visual changes no sore throat no congestion Cardiovascular: No chest pain ,palpitation Skin, no jaundice no rashes Respiratory: No dyspnea cough sputum or hemoptysis GI: no vomiting : No dysuria No hematuria Muscle skeletal: no neck pain, Neurologic: No numbness no confusion Psych: No stress anxiety Immunology: No splenectomy or history of AIDS Physical Exam Physical Exam General Appearance: well developed/nourished, alert, awake, mild distress Gastrointestinal: soft, tenderness Comments: Well-developed well-nourished person in no acute distress HEENT: Nose is atraumatic. Neck: Normal inspection Back: Right CVA tenderness Cardiovascular: Regular rate and rhythms no murmurs rubs or gallops, normal JVP Respiratory: Chest nontender. No respiratory distress.breath sounds clear to auscultation bilaterally Abdomen: Soft, tender palpation in the right flank, right lower quadrant, nondistended, no appreciable organomegaly. Normal bowel sounds. No ascites Extremity: No edema Neuro: Alert oriented x3 Skin: No appreciable rash on exposed skin, skin is warm and dry. Psych: Mood and affect is normal, memory and judgment is normal. Core Measures ACS in differential dx? No Severe Sepsis Present: No Septic Shock Present: No Progress Differential Diagnosis: UTI/pyelo, RUPTURED URETER, STENT INTOLERANCE, HYDRONEPHROSIS, PYELONEPHRITIS, APPENDICITIS Plan of Care: Orders Procedure Date/time Status COMPREHENSIVE METABOLIC PANEL 09/10 1005 Complete CBC WITHOUT DIFFERENTIAL 09/10 1005 Complete URINE 09/10 0950 Complete URINALYSIS 09/10 0950 Complete Laboratory Tests 09/10/16 1020: Anion Gap 11, Estimated GFR > 60, BUN/Creatinine Ratio 12.5, Glucose 86, Calcium 8.8, Total Bilirubin 0.4, AST 25, ALT 31, Alkaline Phosphatase 40, Total Protein 6.4, Albumin 3.8, Globulin 2.6, Albumin/Globulin Ratio 1.5, CBC w Diff NO MAN DIFF REQ, RBC 4.03 L, MCV 90.2, MCH 29.7, RDW 12.9, MPV 8.9, Gran % 62.5, Lymphocytes % 29.0, Monocytes % 7.4, Eosinophils % 0.8, Basophils % 0.3, Absolute Granulocytes 5.4, Absolute Lymphocytes 2.5, Absolute Monocytes 0.6, Absolute Eosinophils 0.1, Absolute Basophils 0, PUBS MCHC 32.9 L 09/10/16 1007: Urine Color YEL, Urine Clarity HAZY H, Urine pH 7.0, Ur Specific [place] 1.010, Urine Protein 100 H, Urine Ketones NEG, Urine Nitrite NEG, Urine Bilirubin NEG, Urine Urobilinogen 0.2, Ur Leukocyte Esterase TRACE H, Ur Microscopic SEDIMENT EXAMINED, Urine RBC >75 H, Urine WBC 10-15 H, Ur Epithelial Cells MOD H, Urine Bacteria RARE H, Urine Mucus FEW, Urine Hemoglobin LARGE H, Urine Glucose NEG, Urine Test NEGATIVE Initial ED EKG: none Comments: Patient was seen and evaluated by Dr. kenny, urology in the emergency department. He feel that this patient can go home and pain can be managed outpatient. He feels that this is likely stent intolerance. She'll contact Dr. Wiley on Monday and he will probably need to take the stone out if she still is in pain. Patient compliant feeling better after medications. Cleared for discharge. Departure Departure Time of Disposition: 1435 Disposition: HOME OR SELF CARE Condition: Stable Clinical Impression Primary Impression: Renal colic Referrals: PATIENT HAS NO PRIMARY CARE DR (PCP/Family) Additional Instructions: Follow-up with Dr. Wiley call to make an appointment. Return for worsening symptoms or concerns. Continue pain medication previously prescribed. Departure Forms: Customer Survey General Discharge Information
--- NOTE | 2016-09-10 10:48 | Cons- Urology ---
General Information and HPI Consulting Request Date of Consult: 09/10/16 Requested By: ED Reason for Consult: right flank pain s/p ureteral stent placement 09/09/16 Source of Information: patient Exam Limitations: no limitations History of Present Illness: Patient is a 21 year old female with a past medical history significant for nephrolithiasis requiring multiple operations from [id number] with associated hydronephrosis. She underwent a cystogram with ureteral stent insertion on 09/09 around 930 am. She was discharged home, returning to the ED 7 hours later with abdominal and right flank pain which she had for approximately 1 hour prior to admission. She was seen by the emergency room PA, and a CT abd/pelvis was performed revealing the stent to be in the distal right ureter, expanding into a portion of the bladder distally. She was told she should undergo cystoscopy, but left AMA due to childcare issues (has 3 children under age of 66 years old). She returned home, the pain had subsided, and returned early this morning, ultimately reporting back to ED with concerns something was wrong. In ED today, patient continues to experience right flank pain and nausea. Her WBC was 8k and she was given IVF. Electrolytes were within normal limits. Patient requesting stent to be removed. Allergies/Medications Allergies: Coded Allergies: No Known Allergies (08/26/16) Home Med List: Ciprofloxacin HCl 500 MG TABLET 1 TAB PO BID ANTIBIOTIC (Reported) Hydromorphone HCl (Dilaudid) 2 MG TABLET 1 TAB PO BIDP PRN PAIN Oxycodone HCl/Acetaminophen (Oxycodone-Acetaminophen 10-325) 10 MG-325 MG TABLET 1 TAB PO AD PRN PAIN (Reported) Past History Medical History Neurological: NONE EENT: NONE Cardiovascular: NONE Respiratory: NONE Gastrointestinal: NONE Hepatic: cholelithiasis Renal: nephrolithiasis, HYDRONEPHROSIS Musculoskeletal: NONE Psychiatric: NONE Endocrine: NONE Blood Disorders: NONE Cancer(s): NONE 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 no Review of Systems Review of Systems: see HPI Exam & Diagnostic Data Vital Signs and I&O Vital Signs Date Time Temp Pulse Resp B/P B/P Pulse O2 O2 Flow FiO2 Mean Ox Delivery Rate 09/10 1204 97.0 78 20 93/54 98 Room Air 09/10 0943 97.5 77 20 120/80 97 Intake & Output 09/10 1600 09/10 0809/10 0000 09/09 0809/09 0000 Intake Total 1000 Output Total Balance 1000 Intake, IV 1000 Patient 135 lb Weight Weight Reported by Patient Measurement Method Physical Exam: Gen: AAOx3 in NAD Cor: s1+S2+ Lungs: CTA rivera Abd: soft, R flank tenderness, ND, +BS x4. +CVA tenderness. No crepitus on exam. Ext: no edema or calf tenderness to rivera lower extremities. Last 24 Hours of Labs: Laboratory Tests 09/10 09/10 1020 1007 Chemistry Sodium (137 - 145 mmol/L) 141 Potassium (3.5 - 5.1 mmol/L) 4.1 Chloride (98 - 107 mmol/L) 107 Carbon Dioxide (22 - 30 mmol/L) 23 Anion Gap (5 - 16) 11 BUN (7 - 17 mg/dL) 10 Creatinine (0.5 - 1.0 mg/dL) 0.8 Estimated GFR (>60 ml/min) > 60 BUN/Creatinine Ratio (7 - 25 %) 12.5 Glucose (65 - 99 mg/dL) 86 Calcium (8.4 - 10.2 mg/dL) 8.8 Total Bilirubin (0.2 - 1.3 mg/dL) 0.4 AST (14 - 36 U/L) 25 ALT (9 - 52 U/L) 31 Alkaline Phosphatase (<127 U/L) 40 Total Protein (6.3 - 8.2 g/dL) 6.4 Albumin (3.5 - 5.0 g/dL) 3.8 Globulin (1.9 - 4.2 gm/dL) 2.6 Albumin/Globulin Ratio (1.1 - 2.2 %) 1.5 Hematology CBC w Diff NO MAN DIFF REQ WBC (4.8 - 10.8 /CUMM) 8.6 RBC (4.20 - 5.40 /CUMM) 4.03 L Hgb (12.0 - 16.0 G/DL) 12.0 Hct (37 - 47 %) 36.4 L MCV (81.0 - 99.0 FL) 90.2 MCH (27.0 - 31.0 PG) 29.7 RDW (11.5 - 14.5 %) 12.9 Plt Count (130 - 400 /CUMM) 201 MPV (7.4 - 10.4 FL) 8.9 Gran % (42.2 - 75.2 %) 62.5 Lymphocytes % (20.5 - 51.1 %) 29.0 Monocytes % (1.7 - 9.3 %) 7.4 Eosinophils % (0 - 5 %) 0.8 Basophils % (0.0 - 2.0 %) 0.3 Absolute Granulocytes (1.4 - 6.5 /CUMM) 5.4 Absolute Lymphocytes (1.2 - 3.4 /CUMM) 2.5 Absolute Monocytes (0.10 - 0.60 /CUMM) 0.6 Absolute Eosinophils (0.0 - 0.7 /CUMM) 0.1 Absolute Basophils (0.0 - 0.2 /CUMM) 0 PUBS MCHC (33.0 - 37.0 G/DL) 32.9 L Urines Urine Color (YEL,AMB,STR) YEL Urine Clarity (CLEAR) HAZY H Urine pH (5.0 - 8.0) 7.0 Ur Specific [place] (1.001 - 1.035) 1.010 Urine Protein (NEG,<30 MG/DL) 100 H Urine Ketones (NEG) NEG Urine Nitrite (NEG) NEG Urine Bilirubin (NEG) NEG Urine Urobilinogen (0.1 - 1.0 EU/dl) 0.2 Ur Leukocyte Esterase (NEG) TRACE H Ur Microscopic SEDIMENT EXAMINED Urine RBC (0 - 5 /HPF) >75 H Urine WBC (0 - 2 /HPF) 10-15 H Ur Epithelial Cells (NONE,FEW) MOD H Urine Bacteria (NEG/NONE) RARE H Urine Mucus (FEW,NONE) FEW Urine Hemoglobin (NEG) LARGE H Urine Glucose (N MG/DL) NEG Urine Test NEGATIVE Other Results: EXAM TYPE: CAT - CT ABD & PELVIS W/O IV CONTRAS EXAMINATION: CT ABDOMEN AND PELVIS WITHOUT CONTRAST CLINICAL INFORMATION: Ureteral injury, stent placement COMPARISON: 08/26/2016 TECHNIQUE: Multidetector volumetric imaging was performed from the superior aspect of the liver through the pubic symphysis. Sagittal and coronal reformatted images were obtained on the technologist's workstation. This is a noncontrast study. Lung bases are grossly clear. Upper abdomen Surgical clips status post cholecystectomy. Liver and spleen are grossly normal in morphology. Region the pancreas is unremarkable.. The adrenal glands is unremarkable. On the right there is a stent which appears to be associated with a dilated pelvis of the right kidney. There is hydronephrosis. Stent appears to extend down inside a dilated ureter which terminates short of the bladder. The left kidney is nonhydronephrotic. The bowel pattern is nonobstructing. No bulky adenopathy. No free fluid in the upper abdomen. In the pelvis believe the stent is not in the bladder but may well be in the very distal ureter. The ureter is poorly seen in the region of the pelvis as was the case on previous exam and cannot be adequately visualized. Uterus lies to the left of midline. There is a serpiginous route immediately after the pelvic system however I do feel that the catheter is lying within the ureter. There is some periureteral soft tissue stranding seen. There is a small amount of free fluid in the deep pelvis. IMPRESSION: Ureteral stent on the right proximally is felt to be in the pelvis of the dilated collecting system but distally it is not felt into the bladder and may be lying within the distal right ureter. Difficult to determine the exact position here distally as the ureter is not adequately defined in the deep pelvis. Correlation needs to be made clinically. There is a small amount of free fluid in the deep pelvis. More proximally the ureter within the dilated right renal collecting system does take a serpiginous lateral coarse which is different than the ureteral appearance on 08/26/2016 however field with is still likely within the ureter here. 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 AVSS Plan: Patient to be seen by Dr. Saenz today. Continue NPO/IVF. Consult Acknowledgment - Thank you for your consult request.
[2016-09-10 11:00] LABS: ABSOLUTE BASOPHIL COUNT 0 /CUMM (0.0-0.2); ABSOLUTE EOSINOPHIL COUNT 0.1 /CUMM (0.0-0.7); ABSOLUTE GRANULOCYTE CT 5.4 /CUMM (1.4-6.5); ABSOLUTE LYMPH COUNT 2.5 /CUMM (1.2-3.4); ABSOLUTE MONOCYTE COUNT 0.6 /CUMM (0.10-0.60); BASOPHIL % 0.3 % (0.0-2.0); EOSINOPHIL % 0.8 % (0-5); GRANULOCYTE % 62.5 % (42.2-75.2); HEMATOCRIT 36.4 % (37-47); MEAN CORPUSCULAR HGB 29.7 PG (27.0-31.0); MEAN CORPUSCULAR HGB CONC 32.9 G/DL (33.0-37.0); MEAN CORPUSCULAR VOLUME 90.2 FL (81.0-99.0); MEAN PLATELET VOLUME 8.9 FL (7.4-10.4); PLATELET COUNT 201 /CUMM (130-400); RBC DISTRIBUTION WIDTH 12.9 % (11.5-14.5); RED BLOOD CELL CT 4.03 /CUMM (4.20-5.40); WHITE BLOOD CELL COUNT 8.6 /CUMM (4.8-10.8)
[2016-09-10 14:46] VITALS: BP 114/71
== END 2016-09-10 14:48 ==
LOC: ERH 09:42
PROVIDERS: Physician Assistant
DX: N23 Unspecified renal colic (principal)
CPT/HCPCS: 81001; 81025; 96361; 96374; 96375; J1885

== ENCOUNTER 2016-09-12 23:30 | Emergency (ER) | payer OTHER ==
[~2016-09-12] VITALS: Ht 167.6 cm; Wt 59.0 kg
--- NOTE | 2016-09-12 23:43 | ED GI/GU/ABDOMINAL COMPLAINT ---
History of Present Illness General Chief Complaint: Abdominal Pain/Flank Pain Stated Complaint: RIGHT FLANK PAIN Source: patient, old records Exam Limitations: no limitations Vital Signs & Intake/Output Vital Signs & Intake/Output Vital Signs Date Time Temp Pulse Resp B/P B/P Pulse O2 O2 Flow FiO2 Mean Ox Delivery Rate 09/12 2343 98.3 85 18 117/78 96 Room Air ED Intake and Output 09/13 0000 09/12 1200 Intake Total 1000 Output Total Balance 1000 Intake, IV 1000 Patient 130 lb Weight Weight Estimated Measurement Method Allergies Coded Allergies: No Known Allergies (08/26/16) Reconcile Medications Ciprofloxacin HCl 500 MG TABLET 1 TAB PO BID ANTIBIOTIC (Reported) Hydromorphone HCl (Dilaudid) 2 MG TABLET 1 TAB PO BIDP PRN PAIN Oxycodone HCl/Acetaminophen (Oxycodone-Acetaminophen 10-325) 10 MG-325 MG TABLET 1 TAB PO AD PRN PAIN (Reported) Triage Nurses Notes Reviewed? yes ? N Is pt currently ? No HPI: Patient presents with severe, 10 out of 10 crampy pain in her right flank that radiates to her groin. Patient has known kidney stones. Patient had stent placed in the day and then earlier today she had the original Cente canal and a pediatric stent placed to try and alleviate the pain. Patient states that she is still in severe pain. There is no relief from the Percocet that she has been taking at home. She denies any dysuria. Positive urinary frequency. Positive nausea but no vomiting. Patient states that the only thing that helps a little bit is IV Dilaudid. Past History Travel History Traveled to [place] past 21 day No Medical History Any Pertinent Medical History? 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 No Review of Systems Review of Systems Constitutional: Reports: no symptoms. EENTM: Reports: no symptoms. Respiratory: Reports: no symptoms. Cardiovascular: Reports: no symptoms. GI: Reports: no symptoms. Genitourinary: Reports: no symptoms. Musculoskeletal: Reports: see HPI, back pain. Skin: Reports: no symptoms. Neurological/Psychological: Reports: no symptoms. Hematologic/Endocrine: Reports: no symptoms. Immunologic/Allergic: Reports: no symptoms. All Other Systems: Reviewed and Negative Physical Exam Physical Exam General Appearance: well developed/nourished, alert, awake, anxious, severe distress Head: atraumatic, normal appearance Eyes: Bilateral: PERRL, EOMI. Ears, Nose, Throat, Mouth: hearing grossly normal, moist mucous membrane Neck: normal inspection, supple, full range of motion Respiratory: normal breath sounds, chest non-tender, no respiratory distress, lungs clear Cardiovascular: regular rate/rhythm, normal peripheral pulses Gastrointestinal: normal bowel sounds, soft, non-tender, no organomegaly Back: CVA tenderness (R) Extremities: normal range of motion Neurologic/Psych: no motor/sensory deficits, awake, alert, oriented x 3, normal gait, normal mood/affect Skin: intact, normal color, warm/dry Core Measures ACS in differential dx? No Severe Sepsis Present: No Septic Shock Present: No Progress Differential Diagnosis: kidney stone, UTI/pyelo, STENT DISPLACEMENT Plan of Care: Orders Procedure Date/time Status CBC WITHOUT DIFFERENTIAL 09/12 2341 Complete BASIC METABOLIC PANEL 09/12 2341 Complete Current Medications Sig/Abdi Start time Last Medication Dose Stop Time Status Admin Hydromorphone HCl 2 MG ONCE ONE 09/13 034 UNVr (Dilaudid) 09/13 0346 Laboratory Tests 09/12/16 2347: Anion Gap 10, Estimated GFR > 60, BUN/Creatinine Ratio 11.4, Glucose 94, Calcium 9.0, CBC w Diff NO MAN DIFF REQ, RBC 3.86 L, MCV 88.0, MCH 30.2, RDW 12.2, MPV 8.6, Gran % 74.3, Lymphocytes % 17.0 L, Monocytes % 6.7, Eosinophils % 1.7, Basophils % 0.3, Absolute Granulocytes 5.8, Absolute Lymphocytes 1.3, Absolute Monocytes 0.5, Absolute Eosinophils 0.1, Absolute Basophils 0, PUBS MCHC 34.3 Diagnostic Imaging: Viewed by Me: Radiology Read. Discussed w/RAD: Radiology Read. Radiology Impression: PATIENT: LANCE HERNANDES PRESENT AGE: 21 PATIENT ACCOUNT NO: [id number] : 93 LOCATION: [facility] ORDERING PHYSICIAN: XIOMARA SAVAGE MD SERVICE DATE: 09/12/16 EXAM TYPE: RAD - [id number] VIEW EXAMINATION: XR ABDOMEN CLINICAL INDICATION: Right flank pain. Right ureteral stent placement. COMPARISON: 09/12/2016 and 09/09/2016. TECHNIQUE: AP view of the abdomen. FINDINGS: There is a double-J right ureteral stent in place. No suspicious calcifications. Status post cholecystectomy with surgical clips noted. Phleboliths in the pelvis. The bowel gas pattern is unremarkable. IMPRESSION: Right double-J ureteral stent in place. DICTATED BY: CONSTANZA CUMMINGS MD DATE/TIME DICTATED:09/12/162358 JOCKEY VALET: AL DATE/TIME TRANSCRIBED:09/12/162358 CONFIDENTIAL, DO NOT COPY WITHOUT APPROPRIATE AUTHORIZATION. <Electronically signed in Other Vendor System> SIGNED BY: CONSTANZA CUMMINGS MD 09/13/16 0004 Initial ED EKG: none Comments: Pain decreased after second dose of IV Dilaudid. Pain began to come back. We' ll try IV Toradol and IV Valium to see if it's more of ureter spasm. Departure Departure Disposition: HOME OR SELF CARE Condition: Stable Clinical Impression Primary Impression: Flank pain Referrals: PATIENT HAS NO PRIMARY CARE DR (PCP/Family) COURTNEY WILLSON MD Additional Instructions: FOLLOW UP WITH DR. WILLSON RETURN FOR ANY COCNERNS Departure Forms: Customer Survey General Discharge Information
--- NOTE | 2016-09-13 00:04 | RADIOLOGY REPORT ---
EXAMINATION: XR ABDOMEN CLINICAL INDICATION: Right flank pain. Right ureteral stent placement. COMPARISON: 09/12/2016 and 09/09/2016. TECHNIQUE: AP view of the abdomen. FINDINGS: There is a double-J right ureteral stent in place. No suspicious calcifications. Status post cholecystectomy with surgical clips noted. Phleboliths in the pelvis. The bowel gas pattern is unremarkable. IMPRESSION: Right double-J ureteral stent in place.
[2016-09-13 00:22] LABS: ABSOLUTE BASOPHIL COUNT 0 /CUMM (0.0-0.2); ABSOLUTE EOSINOPHIL COUNT 0.1 /CUMM (0.0-0.7); ABSOLUTE GRANULOCYTE CT 5.8 /CUMM (1.4-6.5); ABSOLUTE LYMPH COUNT 1.3 /CUMM (1.2-3.4); ABSOLUTE MONOCYTE COUNT 0.5 /CUMM (0.10-0.60); BASOPHIL % 0.3 % (0.0-2.0); EOSINOPHIL % 1.7 % (0-5); GRANULOCYTE % 74.3 % (42.2-75.2); HEMATOCRIT 33.9 % (37-47); MEAN CORPUSCULAR HGB 30.2 PG (27.0-31.0); MEAN CORPUSCULAR HGB CONC 34.3 G/DL (33.0-37.0); MEAN PLATELET VOLUME 8.6 FL (7.4-10.4); PLATELET COUNT 187 /CUMM (130-400); RBC DISTRIBUTION WIDTH 12.2 % (11.5-14.5); RED BLOOD CELL CT 3.86 /CUMM (4.20-5.40); WHITE BLOOD CELL COUNT 7.8 /CUMM (4.8-10.8)
[2016-09-13 03:53] VITALS: BP 109/67
== END 2016-09-13 03:57 ==
LOC: ERH 23:30
PROVIDERS: Emergency Medicine
DX: R10.9 Unspecified abdominal pain (principal)
CPT/HCPCS: 74000; 96374; 96375; 96376; J1885; J2405; J3360

== ENCOUNTER → 2016-09-12 | Day surgery (SDC) | payer OTHER ==
--- NOTE | 2016-09-12 17:34 | RADIOLOGY REPORT ---
EXAMINATION: XR ABDOMEN CLINICAL INDICATION: Right cystoureteroscopy performed with stent exchange. COMPARISON: CT abdomen pelvis from 09/09/2016 TECHNIQUE: Fluoroscopic imaging of the right abdomen was utilized by Dr. Wiley. FLUOROSCOPY TIME: 1.2 minutes. DOSE: 11.7 mGy NUMBER OF SAVED IMAGES: 2. FINDINGS: A right retrograde ureterography examination was performed. There was right hydroureteronephrosis. On the first saved image, question whether the smooth luminal narrowing at the ureteropelvic junction was transient or represented a fixed narrowing. The second image showed the proximal loop of the ureteral stent to be within the dilated renal pelvis. The distal segment of the stent was not included in the [id number]. IMPRESSION: Fluoroscopic imaging assistance was provided to Dr. Wiley. A ureteral stent exchange was reportedly performed. Please refer to the operative report.
--- NOTE | 2016-09-15 14:05 | Operative Report ---
Operative/Inv Procedure Report Surgery Date: 09/12/16 Name of Procedure: cystoscopy: right stent exchange Pre-Operative Diagnosis: stent intolerance (polaris) Post-Operative Diagnosis: tortuous ureter: new right 4.7 X 22 stent fairly tolerated. Estimated Blood Loss: scant Surgeon/Tactical Debriefer Officer: COURTNEY WILLSON MD Anesthesia: moderate sedation Specimens: old polaris stent Complications: none Operative/Procedure Note Note: The patient was taken to the operating room and placed on the OR table in supine position. Timeout was performed, with the patient awake, in order to confirm correct identity, procedure, laterality, anesthesia, and other pertinent perioperative information. After adequate anesthesia and antibiotics, the patient was placed in lithotomy yellow-fin stirrups draped and prepped in the usual surgical fashion. A 22 Greek cystoscope sheath was inserted under direct visualization. Upon entering the bladder the bladder noted to be free of tumor free of stone. Both orifices were noted to be in their orthotopic position: with the right orifice being intubated with a POLARIS stent. With an alligator forcep, through the cystoscope, the right stent was grasped. The cystoscope, along with entire stent ,was easily removed under direct visualization without difficulty. The stent was noted to be intact and sent to pathology. The 22 Greek cystoscope sheath with 30 angle lens was re-inserted into the urethra without difficulty. Under direct visualization the right ureter orifice was intubated with a 0.035 Glidewire into the right ureteral orifice, which was advanced easily into the right renal pelvis. Over the Glidewire, a BARD 4.7 X 22 onlay ureteral stent was advanced. With the proximal coil reaching the right renal pelvis, and the distal loops in the bladder, the Glidewire was removed. The stent remained in proper place both cystoscopically, and fluoroscopically. The bladder was then drained, and the cystoscope was removed. The patient tolerated procedure well and will follow-up as outpatient for further plan/ procedures. Discharge Disposition: PACU CC: COURTNEY WILLSON MD
== END ==
LOC: STS 07:00
DX: T83.89XA Other specified complication of genitourinary prosthetic devices, implants and grafts, initial encounter (principal); N13.8 Other obstructive and reflux uropathy; Z87.442 Personal history of urinary calculi
CPT/HCPCS: 74000; 81025; C2617; J2250

== ENCOUNTER 2017-06-17 19:00 | Emergency (ER) | payer OTHER ==
[~2017-06-17 19:00] MED LIST changes: +NUVARING VAGIN1 EACH VG
[2017-06-17 19:15] VITALS: BP 124/84
--- NOTE | 2017-06-17 20:05 | ED GI/GU/ABDOMINAL COMPLAINT ---
History of Present Illness General Chief Complaint: General Adult Stated Complaint: FEVER,BODY ACHES Source: patient, old records Exam Limitations: no limitations Vital Signs & Intake/Output Vital Signs & Intake/Output Vital Signs Date Time Temp Pulse Resp B/P B/P Pulse O2 O2 Flow FiO2 Mean Ox Delivery Rate 06/17 1914 98.1 100 20 124/84 Allergies Coded Allergies: No Known Allergies (08/26/16) Reconcile Medications Ciprofloxacin HCl (Cipro) 500 MG TABLET 1 TAB PO BID uti Etonogestrel/Ethinyl Estradiol (Nuvaring Vaginal Ring) 0.12 MG -0.015 MG/24 HR VAG.RING 1 EACH VG Q30D CONTROL (Reported) use for 3 weeks, skip for 1 week Hydrocodone/Acetaminophen (Hydrocodon-Acetaminophen 5-325) 5 MG-325 MG TABLET 1 TAB PO BID PRN pain Oxycodone HCl/Acetaminophen (Oxycodone-Acetaminophen 10-325) 10 MG-325 MG TABLET 1 TAB PO AD PRN PAIN (Reported) Oxycodone HCl/Acetaminophen (Percocet 5-325 MG Tablet) 5 MG-325 MG TABLET 1-2 TAB PO Q6P PRN pain Oxycodone HCl/Acetaminophen (Percocet 5-325 MG Tablet) 5 MG-325 MG TABLET 1 TAB PO BID PRN pain Triage Note: PER PT FLU LIKE SYMPTOMS WITH FEVER ALSO FLANK PAIN RECENT CT SHOWED MORE STONES IN ALOT OF PAIN Triage Nurses Notes Reviewed? yes ? N Is pt currently ? No Onset: Gradual Duration: day(s): Timing: recent history Quality/Severity: sharpness, severe, throbbing Location: left flank, right flank Prior Abdominal Problems: similar symptoms HPI: 22-year-old female with history of kidney stones requiring lithotripsy presents emergency department complaining of cough, congestion, fevers, body aches, bilateral back pain. Patient reports that she has had bilateral back pain for the past week, she had a recent x-ray and ultrasound done through Dr. Wiley's office which showed nonobstructing kidney stones. Patient reports that for the past few days she has also had dysuria. Patient denies hematuria, vaginal discharge, vomiting, diarrhea. (Shannon MCDERMOTT,Adilene Huerta) Past History Travel History Traveled to [place] past 21 day No Medical History Any Pertinent Medical History? see below for history Neurological: NONE EENT: NONE Cardiovascular: NONE Respiratory: NONE Gastrointestinal: NONE Hepatic: cholelithiasis Renal: nephrolithiasis, HYDRONEPHROSIS Musculoskeletal: NONE Psychiatric: NONE Endocrine: NONE Blood Disorders: NONE Cancer(s): NONE REVIT DRAFTER/Reproductive: NONE History of MRSA: No History of VRE: No History of CDIFF: No Surgical History Surgical History: cholecystectomy, , KIDNEY STENTS Psychosocial History Who do you live with Family Services at Home None What is your primary language Sami Tobacco Use: Current Not Daily Daily Tobacco Use Amount/Type: =< 4 Cigarettes daily Family History Hx Contributory? No (Adilene Boggs) Review of Systems Review of Systems Constitutional: Reports: see HPI. EENTM: Reports: see HPI. Respiratory: Reports: no symptoms. Cardiovascular: Reports: no symptoms. GI: Reports: see HPI. Genitourinary: Reports: see HPI. Musculoskeletal: Reports: no symptoms. Skin: Reports: no symptoms. Neurological/Psychological: Reports: no symptoms. Hematologic/Endocrine: Reports: no symptoms. Immunologic/Allergic: Reports: no symptoms. All Other Systems: Reviewed and Negative (Adilene Boggs) Physical Exam Physical Exam General Appearance: well developed/nourished, no apparent distress, alert, awake Head: atraumatic, normal appearance Eyes: Bilateral: normal appearance. Ears, Nose, Throat, Mouth: hearing grossly normal Neck: normal inspection, supple, full range of motion Respiratory: normal breath sounds, no respiratory distress, lungs clear Cardiovascular: regular rate/rhythm Gastrointestinal: normal bowel sounds, soft, no organomegaly, suprapubic tenderness Back: normal inspection, normal range of motion, bilateral lower back tenderness Extremities: normal range of motion Neurologic/Psych: awake, alert, oriented x 3 Skin: intact, normal color, warm/dry Core Measures ACS in differential dx? No Sepsis Present: No Sepsis Focused Exam Completed? No (Adilene Boggs) Progress Differential Diagnosis: ectopic , kidney stone, PID/cervicitis, UTI/ pyelo, influenza, viral URI, pharyngitis Plan of Care: Orders Procedure Date/time Status URINE 06/17 1914 Complete URINALYSIS 06/17 1914 Complete RAPID VIRAL INFLUENZA A 06/17 1901 Complete Laboratory Tests 06/17/171921: Urinalysis MOD H, Urine Color YEL, Urine Clarity HAZY H, Urine pH 6.0, Ur Specific [place] >= 1.030, Urine Protein NEG, Urine Ketones TRACE H, Urine Nitrite NEG, Urine Bilirubin NEG, Urine Urobilinogen 0.2, Ur Leukocyte Esterase SMALL H, Ur Microscopic SEDIMENT EXAMINED, Urine WBC 15-25 H, Ur Epithelial Cells MANY H, Urine Bacteria MOD H, Urine Mucus FEW, Urine Hemoglobin NEG, Urine Glucose NEG, Urine Test NEGATIVE Microbiology 06/17 1917 NASOPHARYN: Influenza Virus A & B Rapid Smear - COMP Patient complaining of back pain however no CVA tenderness. Urine shows possible UTI however contaminated specimen. Will obtain urine culture to further assess for her and I will start patient on antibiotics and have her follow-up with Dr. Wiley on Monday, if he suspects pyelonephritis he may extend course of antibiotics. Vicodin prescription was canceled. Initial ED EKG: none (Shannon MCDERMOTT,Adilene Huerta) Departure Departure Disposition: HOME OR SELF CARE Condition: Stable Clinical Impression Primary Impression: UTI (urinary tract infection) Qualifiers: Urinary tract infection type: acute cystitis Hematuria presence: without hematuria Qualified Code: N30.00 - Acute cystitis without hematuria Referrals: Patient Has No Primary Care Dr (PCP/Family) Additional Instructions: Begin antibiotics today, take full course of antibiotics. Follow-up with Dr. Wiley, call his office on Monday to discuss her symptoms. He may wish to extend her course of antibiotics. Take Vicodin as prescribed as needed for pain , this is a narcotic, can be highly habit-forming or addictive, do not drive or drink alcohol with taking this medication. If your symptoms worsen or develop other concerns please return to emergency department. Please note that there might be incidental findings in your evaluation that are unrelated to the current emergency department visit. Please notify your primary care doctor about this emergency department visit in order to obtain and review all of the testing performed so that these incidental findings can be monitored as needed. If you had an x-ray performed, please understand that some fractures may not be seen on the initial set of x-rays. If your symptoms persist you might need a repeat set of x-rays to check for such a fracture. If you had a laceration evaluated, please understand that foreign bodies such as glass or wood may not be visible to the naked eye or on plain x-rays. If the wound becomes red, swollen, increasingly more painful or if there is any drainage from the wound, please have it reevaluated by a physician for the possibility of a retained foreign body. If you're unable to follow up as outlined in the discharge instructions please return to the emergency department. Thank you for choosing the [facility] for your care. It was a pleasure to serve you today. Departure Forms: Customer Survey General Discharge Information Prescriptions: Current Visit Scripts Ciprofloxacin HCl (Cipro) 1 TAB PO BID #10 TAB Hydrocodone/Acetaminophen (Hydrocodon-Acetaminophen 5-325) 1 TAB PO BID PRN pain #10 TAB Oxycodone HCl/Acetaminophen (Percocet 5-325 MG Tablet) 1 TAB PO BID PRN pain #10 TAB (Shannon MCDERMOTT,Adilene Huerta) PA/GIFT SHOP MANAGER Co-Sign Statement Statement: ED Attending supervision documentation- [] I saw and evaluated the patient. I have also reviewed all the pertinent lab results and diagnostic results. I agree with the findings and the plan of care as documented in the PA's/GIFT SHOP MANAGER's documentation. [X] I have reviewed the ED Record and agree with the PA's/GIFT SHOP MANAGER's documentation. [] Additions or exceptions (if any) to the PAs/GIFT SHOP MANAGER's note and plan are summarized below: [] (Reyes MORALES,Irma)
[2017-06-17] MEDS ORDERED: HYDROCODON-ACE1 EAC2 PO (20:13)
[2017-06-17] MEDS ORDERED: CIPRO500 M1 PO (20:13)
[2017-06-17] MEDS ORDERED: PERCOCET 5-3251 EACH PO (20:34)
== END 2017-06-17 20:19 ==
LOC: ERH 19:00
DX: N39.0 Urinary tract infection, site not specified (principal); R05 Cough; M54.5 Low back pain
CPT/HCPCS: 81001; 81025; 87804; 87804-59

== ENCOUNTER 2017-09-02 22:00 | Emergency (ER) | payer OTHER ==
[~2017-09-02] VITALS: Ht 165.1 cm; Wt 72.6 kg
[~2017-09-02 22:00] MED LIST changes: +CIPRO500 M1 PO; +HYDROCODON-ACE1 EAC2 PO
--- NOTE | 2017-09-02 22:29 | ED CARDIAC/CP/PALPITATIONS ---
History of Present Illness General Chief Complaint: Chest Pain Stated Complaint: CHEST PAIN Source: patient, old records Exam Limitations: no limitations Vital Signs & Intake/Output Vital Signs & Intake/Output Vital Signs Date Time Temp Pulse Resp B/P B/P Pulse O2 O2 Flow FiO2 Mean Ox Delivery Rate 09/03 0115 99.1 90 18 117/74 98 Room Air 09/03 0046 108 126/80 09/03 0046 108 126/80 09/03 0024 110 122/80 09/03 0024 110 20 122/80 97 Room Air 09/02 2325 158 20 148/80 09/02 2317 138 18 143/86 95 Room Air 09/02 2204 97.8 133 22 157/99 96 Room Air ED Intake and Output 09/03 0000 09/02 1200 Intake Total 1000 Output Total Balance 1000 Intake, IV 1000 Patient 160 lb Weight Allergies Coded Allergies: No Known Allergies (08/26/16) Reconcile Medications Ciprofloxacin HCl (Cipro) 500 MG TABLET 1 TAB PO BID uti Etonogestrel/Ethinyl Estradiol (Nuvaring Vaginal Ring) 0.12 MG -0.015 MG/24 HR VAG.RING 1 EACH VG Q30D CONTROL (Reported) use for 3 weeks, skip for 1 week Hydrocodone/Acetaminophen (Hydrocodon-Acetaminophen 5-325) 5 MG-325 MG TABLET 1 TAB PO BID PRN pain Metoprolol Tartrate (Lopressor) 50 MG TABLET 1 TAB PO DAILY TACHYCARDIA Oxycodone HCl/Acetaminophen (Oxycodone-Acetaminophen 10-325) 10 MG-325 MG TABLET 1 TAB PO AD PRN PAIN (Reported) Oxycodone HCl/Acetaminophen (Percocet 5-325 MG Tablet) 5 MG-325 MG TABLET 1-2 TAB PO Q6P PRN pain Oxycodone HCl/Acetaminophen (Percocet 5-325 MG Tablet) 5 MG-325 MG TABLET 1 TAB PO BID PRN pain Triage Note: PT TO TRIAGE C/O CHEST HEAVINESS, "RACING HEART," X 2 HOURS WHILE AT REST. DENIES SOB. DENIES CARDIAC HX. HR 130 IN TRIAGE. TAKEN TO [facility] FOR EKG. Triage Nurses Notes Reviewed? yes Onset: Abrupt Duration: hour(s): (2), constant Timing: recent history Quality/Severity: moderate, HEAVINESS Location: central Radiation: no radiation Activities at Onset: none Prior Chest Pain/Card Workup: no prior chest pain Aspirin Today: no aspirin today Associated Symptoms: DENIES : No Patient currently breastfeeds: No HPI: 22-year-old female history of kidney stones presents to the ER for evaluation complaining of sudden onset of racing heart rate, palpitations and began 2 hours ago followed by chest heaviness. She denies shortness of breath or pain with inspiration. No history of similar episodes in the past. She states she was at her mother's house at rest when the symptoms began. No abdominal pain nausea vomiting she does report that she has had flank pain is scheduled to see her urologist next week to have a procedure performed. No fever no chills no nausea no vomiting. She denies drug use.She is not on oral contraceptives (Alfonso Young) Past History Travel History Traveled to [place] past 21 day No Medical History Any Pertinent Medical History? 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 No (Alfonso Young) Review of Systems Review of Systems Constitutional: Reports: see HPI. Comments Review of systems: See HPI, All other systems negative. Constitutional, no chills no fever, HEENT: no sore throat no congestion Cardiovascular: No chest pain Skin: no rashes, no change in skin Respiratory: No dyspnea no cough no sputum GI: No nausea no vomiting Muscle skeletal: No joint pain, no back pain Neurologic: , no headache Heme/endocrine: No bruising Immunology: No lymphadenopathy (Alfonso Young) Physical Exam Physical Exam General Appearance: well developed/nourished, alert, awake, anxious Cardiovascular: tachycardia Comments: Well-developed well-nourished person in no acute distress HEENT: Normal EENT exam; PERRL, EOMI, HEAD is atraumatic. moist mucous membranes. Neck: Supple, normal range of motion Back: Nontender, no CVA tenderness. Full range of motion Cardiovascular: Tachycardic, regular rhythm no murmurs rubs Respiratory: Chest nontender.There were no bony deformities, no asymmetry. No respiratory distress. Patient speaking in full complete sentences. Breath sounds clear to auscultation bilaterally: NO W/R/R Abdomen: Soft, nontender Extremity: No edema, full range of motion of extremities Neuro: Alert oriented x3, motor sensory normal, There were no obvious focal neurologic abnormalities. Skin: No appreciable rash on exposed skin, skin is warm and dry. Psych: Mood and affect is normal, memory and judgment is normal. Core Measures ACS in differential dx? Yes CVA/TIA Diagnosis No Sepsis Present: No Sepsis Focused Exam Completed? No (Kenan MCDERMOTT,Alfonso) Progress Differential Diagnosis: AMI, atrial fibrillation, myocarditis, pericarditis, pneumonia, pneumothorax, pulmonary embolism, unstable angina Plan of Care: Orders Procedure Date/time Status EKG 09/03 0030 Active THYROID STIMULATING HORMONE 09/02 230 Complete ETHANOL 09/02 230 Complete Telemetry/Customer Sales Specialist 09/02 2234 Active URINE DRUG SCREEN FOR ER ONLY 09/02 2234 Complete URINALYSIS 09/02 2234 Complete TROPONIN LEVEL 09/03 2211 Complete HUMAN BETA HCG SCREEN 09/03 2211 Complete D-DIMER 09/03 2211 Complete COMPREHENSIVE METABOLIC PANEL 09/03 2211 Complete CBC WITHOUT DIFFERENTIAL 09/03 2211 Complete EKG 09/02 220 Active Current Medications Sig/Abdi Start time Last Medication Dose Stop Time Status Admin Metoprolol Tartrate 5 MG ONCE ONE 09/03 0015 CAN (Lopressor) 09/03 0016 Laboratory Tests 09/02/17 2300: Anion Gap 14, Estimated GFR > 60, BUN/Creatinine Ratio 13.3, Glucose 89, Calcium 9.3, Total Bilirubin 0.5, AST 23, ALT 24, Alkaline Phosphatase 51, Troponin I < 0.01, Total Protein 7.2, Albumin 4.3, Globulin 2.9, Albumin/Globulin Ratio 1.5, TSH 2.510, Total Beta HCG NEGATIVE, D-Dimer High Sensitivty 292 H, CBC w Diff NO MAN DIFF REQ, RBC 4.05 L, MCV 88.4, MCH 30.4, MCHC 34.3, RDW 13.0, MPV 8.6, Gran % 65.1, Lymphocytes % 27.9, Monocytes % 5.4, Eosinophils % 0.4, Basophils % 1.2, Absolute Granulocytes 5.9, Absolute Lymphocytes 2.5, Absolute Monocytes 0.5 , Absolute Eosinophils 0, Absolute Basophils 0.1, Serum Alcohol < 10.0 09/02/17 2240: Urine Opiates Screen 199, Methadone Screen < 40, Barbiturate Screen < 60, Ur Phencyclidine Scrn < 6.00, Amphetamines Screen 292, U Benzodiazepines Scrn < 85, Urine Cocaine Screen < 50, Urine Cannabis Screen < 5.00, Urine Color YEL, Urine Clarity HAZY H, Urine pH 7.1, Ur Specific [place] 1.010, Urine Protein NEG, Urine Ketones NEG, Urine Nitrite NEG, Urine Bilirubin NEG, Urine Urobilinogen 0.2, Ur Leukocyte Esterase TRACE H, Ur Microscopic SEDIMENT EXAMINED, Urine RBC 15-25 H, Urine WBC 3-5 H, Ur Epithelial Cells FEW, Urine Hemoglobin LARGE H, Urine Glucose NEG 09/02/172238: TSH Cancelled, Serum Alcohol Cancelled Patient medicated with Ativan IV fluids at which time her heart rate jumped to 160 still noted to have clear P waves on the monitor case discussed with Dr. GARG, lopressor 5mgiv ordered 9 patient back from CAT scan heart rate was sinus tach in the 100s, she denies any complaints at this time pending CAT scan labs , Patient has been given a total of 50 mg of Lopressor IV she is resting normally heart rate is down in sinus in the upper 90s to 100, she denies any complaints at this time 100 I D/W the case w/ dr cooney given the pts persistent tachycardia, advisedgiven the elevate amphets on [facility] watch pt for 6-8 hours to see if tachycardia resolved (hr currently in 90s on monitor) deneenhas no complaints at this time- no pain, dizziness, lightheadedness. i d/w with rika plan of care. she does not want to stay- i d/w the harms and risks of leaving at this time and not continually watching on tele. she understands these risks at thsi time, and will signout willingly ama. I discussed with her need for close follow-up with cardiology on Monday however return precautions were discussed directly if symptoms worsen to return immediately. She understands these risks cleared for discharge Diagnostic Imaging: Viewed by Me: CT Scan. Discussed w/RAD: CT Scan. Radiology Impression: PATIENT: RIKA HERNANDES PRESENT AGE: 22 PATIENT ACCOUNT NO: [id number] : 93 LOCATION: [facility] ([place]) ORDERING PHYSICIAN: Alfonso MCDERMOTT SERVICE DATE: 09/02/173331 EXAM TYPE: CAT - CTA CHEST-PULMONARY EMBOLISM EXAMINATION: CT ANGIOGRAM OF THE CHEST WITH AND WITHOUT CONTRAST (CT PULMONARY ANGIOGRAM FOR PE) CLINICAL INFORMATION: Tachycardia. Chest pain. COMPARISON: None TECHNIQUE: Prior to contrast administration, noncontrast localization images were obtained. Subsequently, multidetector volumetric imaging was performed from the thoracic inlet to below the diaphragms following the administration of 95 mL Optiray 320 intravenous contrast. No contrast reaction reported. Sagittal, coronal, and MIP oblique sagittal reformatted images were obtained on the CT workstation, uploaded to PACS, and reviewed. Total exam dose-length product 279 mGy-cm. FINDINGS: QUALITY OF STUDY/ CONTRAST BOLUS: Satisfactory PULMONARY ARTERIES: No central or segmental pulmonary emboli. THORACIC AORTA: No aneurysm or dissection. LUNG: The central airways are patent. No consolidation. There is a solitary left upper lobe peripheral nodule measuring 0.4 cm on series 2 image 191.. PLEURA: No pleural effusion or pneumothorax. MEDIASTINUM: Normal heart size. No pericardial effusion. No hilar or mediastinal lymphadenopathy. Mild wall thickening of the distal esophagus. Residual thymic tissue noted. No evidence of septal bowing or right heart strain. CHEST WALL/AXILLA: No axillary or internal mammary lymphadenopathy. Bilateral nipple piercings. OSSEOUS STRUCTURES: No acute or suspicious osseous abnormality. UPPER ABDOMEN: Cholecystectomy. No reflux of contrast into the hepatic veins to suggest elevated right heart pressures. IMPRESSION: No pulmonary embolism or other acute intrathoracic abnormality. Mild wall thickening of the esophagus. Correlate for esophagitis. Solitary 0.4 cm left upper lobe nodule. No further follow-up needed in a low risk patient. Twelve-month follow-up could be considered in a high-risk patient. VTE: negative DICTATED BY: Boubacar MORALES,Dawit DATE/TIME DICTATED:09/03/1713 CASTING ASSISTANT:AL DATE/TIME TRANSCRIBED:09/03/1713 CONFIDENTIAL, DO NOT COPY WITHOUT APPROPRIATE AUTHORIZATION. <Electronically signed in Other Vendor System> SIGNED BY: Boubacar OMRALES,Dawit 09/03/17 0023 Initial ED EKG: STACH AT 130, NOACUTE ST SEGCHANGES, NORMAL AXIS Prior EKG: unchanged Repeat EKG: changed (NSR AT 90) Rhythm Strip: sinus tachycardia (Alfonso Young) Departure Departure Time of Disposition: 109 Disposition: LEFT AGAINST MEDICAL ADVICE Condition: Stable Clinical Impression Primary Impression: Tachycardia Referrals: Shawanda MORALES,Thiago Tavarez DO,Wade Ludwig (PCP/Family) Additional Instructions: Follow-up with heat treating bluer Dr. Cooney on Monday. Lopressor as discussed. Return to emergency room immediately if he have worsening of her symptoms despite medication feel dizzy lightheaded have chest pain or any other concerns. Departure Forms: Customer Survey General Discharge Information Prescriptions: Current Visit Scripts Metoprolol Tartrate (Lopressor) 1 TAB PO DAILY #7 TAB (Alfonso Young) PA/REFRIGERATION PERSON Co-Sign Statement Statement: ED Attending supervision documentation- I saw and evaluated the patient. I have also reviewed all the pertinent lab results and diagnostic results. I agree with the findings and the plan of care as documented in the PA's/REFRIGERATION PERSON's documentation. x I have reviewed the ED Record and agree with the PA's/REFRIGERATION PERSON's documentation. [] Additions or exceptions (if any) to the PAs/REFRIGERATION PERSON's note and plan are summarized below: [] (Arnol MORALES,Minh) Critical Care Note Critical Care Note Critical Care Time: non-applicable (Alfonso Young)
[2017-09-02 23:15] LABS: ABSOLUTE BASOPHIL COUNT 0.1 /CUMM (0.0-0.2); ABSOLUTE EOSINOPHIL COUNT 0 /CUMM (0.0-0.7); ABSOLUTE GRANULOCYTE CT 5.9 /CUMM (1.4-6.5); ABSOLUTE LYMPH COUNT 2.5 /CUMM (1.2-3.4); ABSOLUTE MONOCYTE COUNT 0.5 /CUMM (0.10-0.60); BASOPHIL % 1.2 % (0.0-2.0); EOSINOPHIL % 0.4 % (0-5); GRANULOCYTE % 65.1 % (42.2-75.2); HEMATOCRIT 35.8 % (37-47); MEAN CORPUSCULAR HGB 30.4 PG (27.0-31.0); MEAN CORPUSCULAR HGB CONC 34.3 G/DL (33.0-37.0); MEAN CORPUSCULAR VOLUME 88.4 FL (81.0-99.0); MEAN PLATELET VOLUME 8.6 FL (7.4-10.4); PLATELET COUNT 278 /CUMM (130-400); RED BLOOD CELL CT 4.05 /CUMM (4.20-5.40); WHITE BLOOD CELL COUNT 9.1 /CUMM (4.8-10.8)
--- NOTE | 2017-09-03 00:23 | CT SCAN REPORT ---
EXAMINATION: CT ANGIOGRAM OF THE CHEST WITH AND WITHOUT CONTRAST (CT PULMONARY ANGIOGRAM FOR PE) CLINICAL INFORMATION: Tachycardia. Chest pain. COMPARISON: None TECHNIQUE: Prior to contrast administration, noncontrast localization images were obtained. Subsequently, multidetector volumetric imaging was performed from the thoracic inlet to below the diaphragms following the administration of 95 mL Optiray 320 intravenous contrast. No contrast reaction reported. Sagittal, coronal, and MIP oblique sagittal reformatted images were obtained on the CT workstation, uploaded to PACS, and reviewed. Total exam dose-length product 279 mGy-cm. FINDINGS: QUALITY OF STUDY/CONTRAST BOLUS: Satisfactory PULMONARY ARTERIES: No central or segmental pulmonary emboli. THORACIC AORTA: No aneurysm or dissection. LUNG: The central airways are patent. No consolidation. There is a solitary left upper lobe peripheral nodule measuring 0.4 cm on series 2 image 191.. PLEURA: No pleural effusion or pneumothorax. MEDIASTINUM: Normal heart size. No pericardial effusion. No hilar or mediastinal lymphadenopathy. Mild wall thickening of the distal esophagus. Residual thymic tissue noted. No evidence of septal bowing or right heart strain. CHEST WALL/AXILLA: No axillary or internal mammary lymphadenopathy. Bilateral nipple piercings. OSSEOUS STRUCTURES: No acute or suspicious osseous abnormality. UPPER ABDOMEN: Cholecystectomy. No reflux of contrast into the hepatic veins to suggest elevated right heart pressures. IMPRESSION: No pulmonary embolism or other acute intrathoracic abnormality. Mild wall thickening of the esophagus. Correlate for esophagitis. Solitary 0.4 cm left upper lobe nodule. No further follow-up needed in a low risk patient. Twelve-month follow-up could be considered in a high-risk patient. VTE: negative
[2017-09-03] MEDS ORDERED: LOPRESSOR50 M1 PO (01:11)
[2017-09-03 01:15] VITALS: BP 117/74
== END 2017-09-03 01:17 | disposition left against medical advice (07) ==
LOC: ERH 22:00
PROVIDERS: Physician Assistant Medical
DX: R00.0 Tachycardia, unspecified (principal); R07.89 Other chest pain
CPT/HCPCS: 80307; 81001; 93005; 93010; 96374; 96375; 96376; G0480

== ENCOUNTER → 2017-09-05 | Day surgery (SDC) | payer OTHER ==
[~2017-09-05] VITALS: Ht 165.1 cm; Wt 72.6 kg
[~2017-09-05] MED LIST changes: +LOPRESSOR50 M1 PO
--- NOTE | 2017-09-05 14:14 | Operative Report ---
Operative/Inv Procedure Report Surgery Date: 09/05/17 Name of Procedure: CYSTO; BILAT. URETEROSCOPY: RETROGHRADE pyelogram: laser standby. Pre-Operative Diagnosis: BILAT. RENAL RENAL COLIC Post-Operative Diagnosis: SAME Estimated Blood Loss: scant Surgeon/Commodity Loan Clerk: Iraj Wiley MD Anesthesia: moderate sedation Specimens: none Complications: NONE Operative/Procedure Note Note: The patient was taken to the operating room and placed on the OR table in supine position. Timeout was performed, with the patient awake, in order to confirm correct patient, procedure, laterality, and other pertinent dionte-operative information. After adequate anesthesia and antibiotics, the patient was then placed in lithotomy stirrups, draped and prepped in the usual surgical fashion. The left ureter orifice was intubated with an 8fr cone-tip catheter, and a retrograde pyelogram, with fluoroscopy, was performed revealing no signficant filling defects. The cone-tipped catheter was removed, and the contrast material drained quickly. No filling defect was seen. This was followed by insertion of a 0.035 Glidewire, which was advanced into the left renal pelvis without difficulty. Placement of the wire was confirmed with fluoroscopy. Leaving the Glidewire in place. flexible ureteroscope was inserted over the gluidewire, and followed the wire into the bladder, up the ureter, and into the left renal pelvis, with fluoroscopy visualization. A retrograde pyelogram was again performed via the ureteroscope revealing no filling defect, normal appearing left renal anatomy. Pyeloscopy/calyxoscopy of the upper, middle, and lower poles reveal no evidence of tumor. However, small stone fragments were seen in the mucosa of renal pelvis. Despite having the yag laser on standy, risk of damaging the renal parechyma vs removal of impacted stone was too great. thus laser was not used. As the ureteroscope was extracted along with the basket and stone fragment, the remainder of the left ureter was visualized. NO other stones, nor any tumor was visualized in the renal pelvis. The entire length of the ureter was also visualized carefully on the way out, and the same findings (no stones or tumor) was confirmed. A 22 Hebrew cystoscope sheath with 30 angle lens was inserted into the bladder without difficulty. Upon entering the bladder, the bladder was noted to be free of tumor free of stone. Both orifices were in their orthotopic position, with clear efflux bilaterally. The RIGHT ureter orifice was intubated with an 8fr cone-tip catheter, and a retrograde pyelogram, with fluoroscopy, was performed revealing no signficant filling defects. The cone-tipped catheter was removed, and the contrast material drained quickly. No filling defect was seen. This was followed by insertion of a 0.035 Glidewire, which was advanced into the RIGHT renal pelvis without difficulty. Placement of the wire was confirmed with fluoroscopy. Leaving the Glidewire in place. flexible ureteroscope was inserted over the gluidewire, and followed the wire into the bladder, up the ureter, and into the RIGHT renal pelvis, with fluoroscopy visualization. A retrograde pyelogram was again performed via the ureteroscope revealing no filling defect, normal appearing left renal anatomy. Pyeloscopy/calyxoscopy of the upper, middle, and lower poles reveal no evidence of tumor. However, small stone fragments were seen in the mucosa of renal pelvis. Despite having the yag laser on standy, risk of damaging the renal parechyma vs removal of impacted stone was too great. thus laser was not used. As the ureteroscope was extracted along with the basket and stone fragment, the remainder of the RIGHT ureter was visualized. NO other stones, nor any tumor was visualized in the renal pelvis. The entire length of the ureter was also visualized carefully on the way out, and the same findings (no stones or tumor) was confirmed. The bladder was then drained after the ureteroscope was removed. The patient tolerated the procedure well was then taken to the recovery room in satisfactory condition. She is discharged with pain medication and antibiotics. She is to follow up in 4 weeks for Findings: no tumor, no stone, no strictures Discharge Disposition: Same Day Admissions CC: Iraj Wiley MD
--- NOTE | 2017-09-06 06:41 | RADIOLOGY REPORT ---
EXAMINATION: INTRAOPERATIVE FLUOROSCOPIC GUIDANCE AND ABDOMEN CLINICAL INFORMATION: Bilateral ureteroscopy. COMPARISON: 06/05/2017. TECHNIQUE: Fluoroscopic time was utilized in the OR for Dr. Wiley. Fluoroscopic images were obtained in the AP projection. FINDINGS: Fluoroscopic guidance was provided during bilateral retrograde ureterograms. Both ureters are of normal caliber. There are no demonstrable filling defects. There is no calyceal dilation. Surgical clips are identified within the right upper quadrant. FLUOROSCOPY TIME: 15 seconds of fluoroscopic time was utilized for the entirety of this examination. IMPRESSION: Fluoroscopic guidance was provided during bilateral retrograde ureterograms. Both ureters are of normal caliber. There are no demonstrable filling defects. There is no calyceal dilation.
== END ==
LOC: STS 03:34
DX: N23 Unspecified renal colic (principal); Z87.442 Personal history of urinary calculi
CPT/HCPCS: 74018; 81025; J2250

== ENCOUNTER 2017-09-16 12:38 | Emergency (ER) | payer OTHER ==
[~2017-09-16] VITALS: Ht 165.1 cm; Wt 72.6 kg
[2017-09-16 13:02] VITALS: BP 127/84
--- NOTE | 2017-09-16 13:31 | ED GENERAL ADULT ---
History of Present Illness General Chief Complaint: Nausea, Vomiting, Diarrhea Stated Complaint: NVD Source: patient Exam Limitations: no limitations Vital Signs & Intake/Output Vital Signs & Intake/Output Vital Signs Date Time Temp Pulse Resp B/P B/P Pulse O2 O2 Flow FiO2 Mean Ox Delivery Rate 09/16 1302 96.5 80 18 127/84 99 Room Air Allergies Coded Allergies: No Known Allergies (08/26/16) Reconcile Medications Ciprofloxacin HCl (Cipro) 500 MG TABLET 1 TAB PO BID uti Etonogestrel/Ethinyl Estradiol (Nuvaring Vaginal Ring) 0.12 MG -0.015 MG/24 HR VAG.RING 1 EACH VG Q30D CONTROL (Reported) use for 3 weeks, skip for 1 week Hydrocodone/Acetaminophen (Hydrocodon-Acetaminophen 5-325) 5 MG-325 MG TABLET 1 TAB PO BID PRN pain Metoprolol Tartrate (Lopressor) 50 MG TABLET 1 TAB PO DAILY TACHYCARDIA Oxycodone HCl/Acetaminophen (Oxycodone-Acetaminophen 10-325) 10 MG-325 MG TABLET 1 TAB PO AD PRN PAIN (Reported) Oxycodone HCl/Acetaminophen (Percocet 5-325 MG Tablet) 5 MG-325 MG TABLET 1-2 TAB PO Q6P PRN pain Oxycodone HCl/Acetaminophen (Percocet 5-325 MG Tablet) 5 MG-325 MG TABLET 1 TAB PO EVERY 6HRS- NEEDED PRN pain Oxycodone HCl/Acetaminophen (Percocet 5-325 MG Tablet) 5 MG-325 MG TABLET 1 TAB PO BID PRN pain Triage Note: PT TO ER C/C RIGHT FLANK PAIN 5/10 AND BURNING ON URINATION, HEMATURIA SINCE CYSTOSCOPY 09/[address] WILEY. 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 Triage Nurses Notes Reviewed? yes : No Patient currently breastfeeds: No HPI: 22 y/o female with h/o renal stones, hydronephrosis, s/p cystoscopy 09/06/17 presenting with dysuria and hematuria that began a few hours after the procedure. Was given empiric cipro x3 days after the procedure to prevent UTI, which she completed without relief. Also developed nausea and diarrhea the same day after the procedure. No bloody stools or melena. No vomiting, but has been using zofran at home to prevent vomiting. No fevers. Reports chronic right flank pain x several months, for which she had the cystoscopy. Unsure of cystoscopy results. Denies h/o STD, vaginal dicharge, or odor. (Francisca Piper) Past History Travel History Traveled to [place] past 21 day No Medical History Any Pertinent Medical History? 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 No (Francisca Piper) Review of Systems Review of Systems Constitutional: Reports: no symptoms. EENTM: Reports: no symptoms. Respiratory: Reports: no symptoms. Cardiovascular: Reports: no symptoms. GI: Reports: no symptoms. Genitourinary: Reports: see HPI (flank pain), dysuria, hematuria. Denies: discharge, frequency , urgency. Musculoskeletal: Reports: no symptoms. Skin: Reports: no symptoms. Neurological/Psychological: Reports: no symptoms. Hematologic/Endocrine: Reports: no symptoms. Immunologic/Allergic: Reports: no symptoms. (Francisca Piper) Physical Exam Physical Exam General Appearance: well developed/nourished, no apparent distress, alert, awake , comfortable Head: atraumatic, normal appearance Eyes: Bilateral: normal appearance. Neck: normal inspection Respiratory: normal breath sounds, lungs clear Cardiovascular: regular rate/rhythm Gastrointestinal: soft, non-tender Back: normal inspection, No CVAT Extremities: normal inspection Neurologic/Psych: awake, alert, oriented x 3, normal gait, normal mood/affect Skin: intact, normal color, warm/dry Core Measures ACS in differential dx? No CVA/TIA Diagnosis: No Sepsis Present: No Sepsis Focused Exam Completed? No (Francisca Piper) Progress Differential Diagnoses I considered the following diagnoses in my evaluation of the patient: [UTI vs pyelo vs ureterolithiasis vs hydro, low concern for cervicitis vs PID] Plan of Care: Orders Procedure Date/time Status URINE 09/16 1309 Complete URINALYSIS 09/16 1309 Complete Current Medications Sig/Abdi Start time Last Medication Dose Stop Time Status Admin Ketorolac 30 MG ONCE ONE 09/16 1430 CAN Tromethamine 09/16 1431 (Toradol) Ondansetron HCl 4 MG ONCE ONE 09/16 1430 CAN (Zofran) 09/16 1431 Sodium Chloride 1,000 ML BOLUS ONE 09/16 1430 CAN (Normal Saline 0.9%) 09/16 1529 Laboratory Tests 09/16/17 1333: Sodium Cancelled, Potassium Cancelled, Chloride Cancelled, Carbon Dioxide Cancelled, Anion Gap Cancelled, BUN Cancelled, Creatinine Cancelled, BUN/ Creatinine Ratio Cancelled, Glucose Cancelled, Calcium Cancelled, CBC w Diff Cancelled, WBC Cancelled, RBC Cancelled, Hgb Cancelled, Hct Cancelled, MCV Cancelled, MCH Cancelled, MCHC Cancelled, RDW Cancelled, Plt Count Cancelled, MPV Cancelled 09/16/17 1309: Urine Color BLDY H, Urine Clarity HAZY H, Urine pH 7.0, Ur Specific [place] <= 1.005, Urine Protein TRACE H, Urine Ketones TRACE H, Urine Nitrite NEG, Urine Bilirubin NEG, Urine Urobilinogen 0.2, Ur Leukocyte Esterase SMALL H, Ur Microscopic SEDIMENT EXAMINED, Urine RBC 50-75 H, Urine WBC RARE, Ur Epithelial Cells MOD H, Urine Bacteria FEW H, Urine Hemoglobin LARGE H, Urine Glucose NEG, Urine Test NEGATIVE Urine concerning for infection, positive for hematuria. Likely with urethral irritation status post cystoscopy resulting in dysuria and hematuria. Urine negative. Patient declining labs or ultrasound, stating that she knows this is her renal stone pain as she has been dealing with this chronic pain for several months now. States that she's been using ibuprofen without relief, and which affect be discharged home with something to alleviate her pain , and that she will follow-up with Dr. Wiley. Patient given Rx Percocet. Instructed to continue ibuprofen and to only use Percocet as needed for breakthrough pain after first trying ibuprofen. Given strict return precautions. Initial ED EKG: none (Irais MCDERMOTT,Francisca) Departure Departure Disposition: HOME OR SELF CARE Condition: Stable Clinical Impression Primary Impression: Right flank pain Secondary Impressions: Dysuria, Hematuria Referrals: Wade Tavarez DO (PCP/Family) Additional Instructions: Continue ibuprofen as needed for pain. Use 1 tablet of Percocet as needed for breakthrough pain. Follow-up with Dr. Wiley for reevaluation. Return to the emergency department for any nor worsening symptoms. Departure Forms: Customer Survey General Discharge Information Prescriptions: Current Visit Scripts Oxycodone HCl/Acetaminophen (Percocet 5-325 MG Tablet) 1 TAB PO EVERY 6HRS- NEEDED PRN pain #10 TAB (Francisca Piper) PA/MASS SPECTROSCOPIST Co-Sign Statement Statement: ED Attending supervision documentation- I saw and evaluated the patient. I have also reviewed all the pertinent lab results and diagnostic results. I agree with the findings and the plan of care as documented in the PA's/MASS SPECTROSCOPIST's documentation. x I have reviewed the ED Record and agree with the PA's/MASS SPECTROSCOPIST's documentation. [] Additions or exceptions (if any) to the PAs/MASS SPECTROSCOPIST's note and plan are summarized below: [] (Arnol MORALES,Minh) Critical Care Note Critical Care Note Critical Care Time: non-applicable (Francisca Piper)
[2017-09-16] MEDS ORDERED: PERCOCET 5-3251 EACH PO (14:39)
== END 2017-09-16 15:11 ==
LOC: ERH 12:38
DX: R31.9 Hematuria, unspecified (principal); R30.0 Dysuria; R10.31 Right lower quadrant pain
CPT/HCPCS: 81001; 81025

== ENCOUNTER 2017-11-20 18:19 | Emergency (ER) | payer OTHER ==
[~2017-11-20] VITALS: Ht 165.1 cm; Wt 68.0 kg
--- NOTE | 2017-11-20 19:48 | ED GI/GU/ABDOMINAL COMPLAINT ---
History of Present Illness General Chief Complaint: Abdominal Pain/Flank Pain Stated Complaint: ?KIDNEY STONE, URINATING BLOOD,FLANK PAIN Source: patient, old records Exam Limitations: no limitations Vital Signs & Intake/Output Vital Signs & Intake/Output Vital Signs Date Time Temp Pulse Resp B/P B/P Pulse O2 O2 Flow FiO2 Mean Ox Delivery Rate 11/20 1828 98.4 106 18 136/89 98 Room Air Allergies Coded Allergies: No Known Allergies (08/26/16) Reconcile Medications Ciprofloxacin HCl (Cipro) 500 MG TABLET 1 TAB PO BID uti Etonogestrel/Ethinyl Estradiol (Nuvaring Vaginal Ring) 0.12 MG -0.015 MG/24 HR VAG.RING 1 EACH VG Q30D CONTROL (Reported) use for 3 weeks, skip for 1 week Hydrocodone/Acetaminophen (Hydrocodon-Acetaminophen 5-325) 5 MG-325 MG TABLET 1 TAB PO BID PRN pain Metoprolol Tartrate (Lopressor) 50 MG TABLET 1 TAB PO DAILY TACHYCARDIA Oxycodone HCl/Acetaminophen (Oxycodone-Acetaminophen 10-325) 10 MG-325 MG TABLET 1 TAB PO AD PRN PAIN (Reported) Oxycodone HCl/Acetaminophen (Percocet 5-325 MG Tablet) 5 MG-325 MG TABLET 1-2 TAB PO Q6P PRN pain Oxycodone HCl/Acetaminophen (Percocet 5-325 MG Tablet) 5 MG-325 MG TABLET 1 TAB PO EVERY 6HRS- NEEDED PRN pain Oxycodone HCl/Acetaminophen (Percocet 5-325 MG Tablet) 5 MG-325 MG TABLET 1-2 TAB PO Q6P PRN PAIN Oxycodone HCl/Acetaminophen (Percocet 5-325 MG Tablet) 5 MG-325 MG TABLET 1 TAB PO BID PRN pain Triage Note: PT STATES SHE IS HAVING PAIN IN HER RIGHT SIDE STATES SHE HAD MULTIPLE KIDNEY STONES THE LAST US SHE HAD. PT STATES THERE IS BLOOD IN HER URINE. Triage Nurses Notes Reviewed? yes ? N Is pt currently ? No HPI: Patient has been having intermittent and right flank pain for the past 2 weeks. Patient had a cystoscopy as well as a hysteroscopy. Patient has known kidney stones. Patient states the pain is now becoming very sharp in nature. The pain waxes and wanes in intensity. The pain goes from a 10 out of 10 down to a 3 out of 10. When the pain is 10 out of 10 she becomes very nauseous. The pain is radiating towards her groin. At its worst the pain is sharp and stabbing in nature and wanted decreases it becomes a crampy pain. There are no fevers or chills. Positive hematuria. No dysuria. Past History Travel History Traveled to [place] past 21 day No Medical History Any Pertinent Medical History? 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 No Review of Systems Review of Systems Constitutional: Reports: no symptoms. EENTM: Reports: no symptoms. Respiratory: Reports: no symptoms. Cardiovascular: Reports: no symptoms. GI: Reports: see HPI, abdominal pain. Genitourinary: Reports: see HPI. Musculoskeletal: Reports: see HPI, back pain. Skin: Reports: no symptoms. Neurological/Psychological: Reports: no symptoms. Hematologic/Endocrine: Reports: no symptoms. Immunologic/Allergic: Reports: no symptoms. All Other Systems: Reviewed and Negative Physical Exam Physical Exam General Appearance: well developed/nourished, alert, awake, anxious, moderate distress Head: atraumatic, normal appearance Eyes: Bilateral: PERRL, EOMI. Ears, Nose, Throat, Mouth: hearing grossly normal, DRY MUCOSA Neck: normal inspection, supple, full range of motion Respiratory: normal breath sounds, chest non-tender, no respiratory distress, lungs clear Cardiovascular: regular rate/rhythm, normal peripheral pulses Gastrointestinal: normal bowel sounds, soft, non-tender, no organomegaly Back: normal inspection, CVA tenderness (R) Extremities: normal range of motion Neurologic/Psych: no motor/sensory deficits, awake, alert, oriented x 3, normal mood/affect Skin: intact, normal color, warm/dry Core Measures ACS in differential dx? No Sepsis Present: No Sepsis Focused Exam Completed? No Progress Differential Diagnosis: ectopic , intrauterine , kidney stone, threatened AB, UTI/pyelo Plan of Care: Orders Procedure Date/time Status COMPREHENSIVE METABOLIC PANEL 11/21 1843 Complete CBC WITHOUT DIFFERENTIAL 11/21 1843 Complete URINE 11/20 1832 Complete URINALYSIS 11/20 1832 Complete Laboratory Tests 11/20/172026: Anion Gap 10, Estimated GFR > 60, BUN/Creatinine Ratio 14.3, Glucose 90, Calcium 9.8, Total Bilirubin 0.3, AST 24, ALT 33, Alkaline Phosphatase 49, Total Protein 7.0, Albumin 4.3, Globulin 2.7, Albumin/Globulin Ratio 1.6, CBC w Diff NO MAN DIFF REQ, RBC 4.07 L, MCV 88.9, MCH 30.5, MCHC 34.3, RDW 12.0, MPV 8.5, Gran % 65.7, Lymphocytes % 25.9, Monocytes % 7.2, Eosinophils % 0.9, Basophils % 0.3, Absolute Granulocytes 3.9, Absolute Lymphocytes 1.6, Absolute Monocytes 0.4, Absolute Eosinophils 0.1, Absolute Basophils 0 11/20/171832: Urinalysis LIGHT H, Urine Color PINK H, Urine Clarity HAZY H, Urine pH 7.0, Ur Specific [place] 1.015, Urine Protein TRACE H, Urine Ketones TRACE H, Urine Nitrite NEG, Urine Bilirubin NEG, Urine Urobilinogen 0.2, Ur Leukocyte Esterase TRACE H, Ur Microscopic SEDIMENT EXAMINED, Urine RBC PACKD H, Urine WBC 3-5 H , Ur Epithelial Cells MOD H, Urine Bacteria MOD H, Urine Mucus FEW, Urine Hemoglobin LARGE H, Urine Glucose NEG, Urine Test NEGATIVE Diagnostic Imaging: Viewed by Me: Ultrasound. Discussed w/RAD: Ultrasound. Radiology Impression: PATIENT: LANCE HERNANDES PRESENT AGE: 22 PATIENT ACCOUNT NO: [id number] : 93 LOCATION: [facility] ORDERING PHYSICIAN: Minh Ambrose MD SERVICE DATE: 11/20/17-1843 EXAM TYPE: US - US- RENAL/KIDNEY EXAMINATION: US RETROPERITONEAL COMPLETE (RENAL) CLINICAL INFORMATION: Hematuria and right flank pain. COMPARISON: Renal ultrasound dated 06/05/2017. TECHNIQUE: Real-time imaging of the kidneys and bladder. FINDINGS: RIGHT KIDNEY: 9.3 x 5.7 x 5.7 cm (SAG x AP x TRV). The kidney is normal in size, contour, and echogenicity. Renal cortical thickness is normal. There is a 0.3 cm calculus in the interpolar region. No focal parenchymal lesions. No hydronephrosis. LEFT KIDNEY: 10.5 x 6 x 5 cm (SAG x AP x TRV). The kidney is normal in size, contour, and echogenicity. Renal cortical thickness is normal. No calculi or focal parenchymal lesions. No hydronephrosis. BLADDER: Well- distended and normal. Bilateral ureteral jets are not demonstrated. Prevoid bladder volume is 16.4 mL. IMPRESSION: Small nonobstructing calculus in the interpolar region of the right kidney. No hydronephrosis. DICTATED BY: Gigi French MD DATE/TIME DICTATED:11/20/172024 LOGGING SUPERVISOR:AL DATE/ TIME TRANSCRIBED:11/20/172024 CONFIDENTIAL, DO NOT COPY WITHOUT APPROPRIATE AUTHORIZATION. <Electronically signed in Other Vendor System> SIGNED BY: Gigi French MD 11/20/172030 Initial ED EKG: none Departure Departure Disposition: HOME OR SELF CARE Condition: Stable Clinical Impression Primary Impression: Kidney stone on right side Referrals: Kevin MORALES,Wade Rob DO (PCP/Family) Additional Instructions: DRINK PELNTY OF FLUIDS FOLLOW UP WITH DR. MARCANO RETURN IF SYMPTOMS WORSEN OR FOR ANY CONCERNS Departure Forms: Customer Survey General Discharge Information Prescriptions: Current Visit Scripts Oxycodone HCl/Acetaminophen (Percocet 5-325 MG Tablet) 1-2 TAB PO Q6P PRN PAIN #20 TAB
--- NOTE | 2017-11-20 20:31 | ULTRASOUND REPORT ---
EXAMINATION: US RETROPERITONEAL COMPLETE (RENAL) CLINICAL INFORMATION: Hematuria and right flank pain. COMPARISON: Renal ultrasound dated 06/05/2017. TECHNIQUE: Real-time imaging of the kidneys and bladder. FINDINGS: RIGHT KIDNEY: 9.3 x 5.7 x 5.7 cm (SAG x AP x TRV). The kidney is normal in size, contour, and echogenicity. Renal cortical thickness is normal. There is a 0.3 cm calculus in the interpolar region. No focal parenchymal lesions. No hydronephrosis. LEFT KIDNEY: 10.5 x 6 x 5 cm (SAG x AP x TRV). The kidney is normal in size, contour, and echogenicity. Renal cortical thickness is normal. No calculi or focal parenchymal lesions. No hydronephrosis. BLADDER: Well-distended and normal. Bilateral ureteral jets are not demonstrated. Prevoid bladder volume is 16.4 mL. IMPRESSION: Small nonobstructing calculus in the interpolar region of the right kidney. No hydronephrosis.
[2017-11-20 20:36] LABS: ABSOLUTE BASOPHIL COUNT 0 /CUMM (0.0-0.2); ABSOLUTE EOSINOPHIL COUNT 0.1 /CUMM (0.0-0.7); ABSOLUTE GRANULOCYTE CT 3.9 /CUMM (1.4-6.5); ABSOLUTE LYMPH COUNT 1.6 /CUMM (1.2-3.4); ABSOLUTE MONOCYTE COUNT 0.4 /CUMM (0.10-0.60); BASOPHIL % 0.3 % (0.0-2.0); EOSINOPHIL % 0.9 % (0-5); GRANULOCYTE % 65.7 % (42.2-75.2); HEMATOCRIT 36.2 % (37-47); MEAN CORPUSCULAR HGB 30.5 PG (27.0-31.0); MEAN CORPUSCULAR HGB CONC 34.3 G/DL (33.0-37.0); MEAN CORPUSCULAR VOLUME 88.9 FL (81.0-99.0); MEAN PLATELET VOLUME 8.5 FL (7.4-10.4); PLATELET COUNT 244 /CUMM (130-400); RED BLOOD CELL CT 4.07 /CUMM (4.20-5.40)
[2017-11-20] MEDS ORDERED: PERCOCET 5-3251 EACH PO (20:49)
[2017-11-20 21:21] VITALS: BP 116/68
[2017-11-20] MEDS ORDERED: DILAUDID2 M1 PO (21:55)
== END 2017-11-20 21:32 ==
LOC: ERH 18:19
PROVIDERS: Emergency Medicine
DX: N20.0 Calculus of kidney (principal)
CPT/HCPCS: 76775; 81001; 81025; 96374; 96375; J1885; J2405